=== PATIENT | female | born 1985 | race Caucasian/White ===

== ENCOUNTER 2020-05-24 10:39 | Emergency (ER) | payer OTHER, SELFPAY ==
[2020-05-24 10:58] VITALS: BP 144/77; PULSE 98; RESP 19; TEMP 36.8; O2SAT 98; BMI 25.6
--- NOTE | 2020-05-24 11:02 | HMH.EDUTC ---
[facility] [place] Disposition Clinical Impression: Viral syndrome Disposition: Home, Self-Care Condition on Discharge: Good Instructions: DI for Viral Syndrome Additional Instructions: Drink plenty of fluids. Take tylenol for pain or fever. Follow up with your regular doctor. GO TO THE ER FOR ANY WORSENING SYMPTOMS .FOLLOW THE DIRECTIONS ON THE COVID-19 HAND OUT THAT WE GAVE YOU REGARDING SELF-ISOLATION UNTIL YOU KNOW YOUR COVID-19 RESULTS Prescriptions: Ondansetron [Zofran 4mg ODT] 4 mg PO Q8HP PRN #10 tab.rapdis PRN Reason: Nausea Transmission Status: Received by [facility] Azithromycin [Z-Ricky 250mg Tab*] 250 mg PO UD DOSE PK #6 tab Transmission Status: Received by [facility] Referrals: PCP,No [Primary Care Provider] - Forms: Work/School Release Time of Disposition: 11:10 Medical Decision Making - Medical Records Medical records reviewed: No: I reviewed the patient's medical records. - Dayo Inquiry Pt receiving controlled substance: No Vital Signs: 05/24/20 10:58 05/24/20 11:15 Temperature 98.2 F 98.2 F Temperature Source Oral Pulse Rate 98 H Pulse Rate [Right Brachial] 98 H Respiratory Rate 19 19 Blood Pressure 144/77 H Blood Pressure [Right Arm] 144/77 H Blood Pressure Mean [Right Arm] 99 Blood Pressure Source [Right Arm] Automatic Cuff Blood Pressure Position [Right Arm] Sitting 02 Sat by Pulse Oximetry 98 Oxygen Delivery Method Room Air - Lab Data Lab results reviewed: Yes: I reviewed the patient's lab results. [facility] [place] HPI - General Stated complaint: fever, sore throat, naseua Time Seen by Provider: 05/24/20 11:07 Mode of Arrival: Ambulatory Source of Information: Patient Limitations: No Limitations Description of Symptoms (Recalled from Triage Doc. by RN): PATIENT C/O SORE THROAT AND BILATERAL EAR PAIN X 1 WEEK HEENT Symptoms (Recalled from RN notes): Yes Resp Symptoms (Recalled from RN notes): No Skin Symptoms (Recalled from RN notes): No MS Symptoms (Recalled from RN notes): No Functional Status (Recalled from RN notes): WNL - History of Present Illness Provider Complaint: She c/o 1 day of sore throat, sinus drainage, malaise and n/v. - Related Data Previous Rx's Medication Instructions Recorded toypofodkwcxmul-qyovrjiblssjgaa-TG 10 ml PO Q4-6H PRN #200 ml 08/15/19 2 mg-30 mg-10 mg/5 mL oral syrup Azithromycin [Z-Ricky 250mg Tab*] 250 mg PO UD DOSE PK #6 tab 05/24/20 Ondansetron [Zofran 4mg ODT] 4 mg PO Q8HP PRN #10 tab.rapdis 05/24/20 Allergies Allergy/AdvReac Type Severity Reaction Status Date / Time No Known Allergies Allergy Verified 05/24/20 11:02 - Worker's Comp Is this a Worker's Comp case?: No H History - Hepatitis A Screen Drug use history?: No High risk sexual behaviors?: No History of sexually transmitted infection?: No Currently employed?: No Childcare worker?: No Do you have indoor plumbing?: Yes Do you have electricity?: Yes Attestation statement:: This patient has been screened for Hepatitis A risk factors. I have reviewed the patient's past medical history: Yes Medical History: Denies:: Cancer, Diabetes Mellitus Type 1, Diabetes Mellitus Type 2, MRSA Amputation: No Fractures: No - Social History Smoking Status: Current every day smoker # Packs/Day (cigarettes): 1 #Yrs smoked (if former smoker): 15 Alcohol Intake: never Occupational Status: other Family Hx:: Cancer ROS Obtained: Yes All systems reviewed & no additional complaints - Constitutional Constitutional: Reports chills, Reports fever(s), Reports poor appetite, Reports malaise - Eyes Eyes: Denies eye discharge - ENT Ears, Nose, Mouth, and Throat: Reports as per HPI - Cardiovascular Cardiovascular: Denies chest pain - Respiratory Respiratory: No chest congestion, Yes cough Physical Exam - General General appearance: alert, in no apparent distress - Head Head exam: atraumatic, no
[2020-05-24 11:15] VITALS: BP 144/77; PULSE 98; RESP 19; TEMP 36.8; O2SAT 98
[2020-05-25 09:17] LABS: UTC Strep Screen (Rapid) Negative (Negative)
== END 2020-05-24 11:19 | disposition home or self-care (01) ==
PROVIDERS: Emergency Provider Nurse Practitioner Family
DX: B34.9 Viral infection, unspecified (principal); F17.210 Nicotine dependence, cigarettes, uncomplicated; Z20.828 Contact with and (suspected) exposure to other viral communicable diseases
CPT/HCPCS: 87880; 99201; U0003

== ENCOUNTER 2020-08-27 12:27 | Emergency (ER) | payer OTHER, SELFPAY ==
[2020-08-27 13:20] VITALS: BP 129/89; PULSE 86; RESP 20; TEMP 36.9; O2SAT 98; BMI 24.7
--- NOTE | 2020-08-27 13:35 | HMH.EDUTC ---
[facility] [place] Disposition Clinical Impression: Encounter for laboratory testing for COVID-19 virus, Strep throat Disposition: Home, Self-Care Condition on Discharge: Good Instructions: DI for COVID-19 (Suspected or Confirmed ), COVID-19: Testing and Tracing, Preventing the Spread of Coronavirus Discharge Instructions, DI for Strep Throat Additional Instructions: *Monitor Temp, Over the counter Motrin or Tylenol as directed/as needed Tylenol every 4 hours and Motrin every 6 hours (as long as your family doctor has told you that you can take it) for fever or pain. and straight to ER if unable to lower temp less than 101.0 after medication given *Warm salt water gargles may help to soothe the throat *Throat Lozenges *Warm fluids like tea with honey may help to soothe the throat *Sleep elevated *Humidifier/Vaporizer Your throat swab was sent for culture. Those results are typically sent to your primary care. Be sure to follow up in 2-3 days with your family doctor/primary care physician if no improvement so they can review those result and treat if necessary. If you don?t have a primary care doctor, I recommend you get one but in the mean time, you will have to return to a walk in clinic Follow up IMMEDIATELY for new or worsening symptoms or no Noticeable improvement over the next 48-72 hours. 911 for difficulty breathing or swallowing You were tested for today for COVID19 your test result should be back in the next 24-48 hours, you may call to the [facility] to see if your test results are back in the next 48 hours [phone] [facility] hours are 9am-9pm You was given a handout with instructions for Self Quarantine and Self isolation for while you wait on test results and what to do if they are positive If you are positive the Health Dept will be contacting you also Prescriptions: Amoxicillin [Amoxicillin 500mg Cap] 500 mg PO BID 10 Days #20 cap Transmission Status: Pending to [facility] Referrals: PCP,No [Primary Care Provider] - As needed Time of Disposition: 13:38 Medical Decision Making - Dayo Inquiry Pt receiving controlled substance: No Dayo was queried for this patient: No Vital Signs: 08/27/20 13:20 Temperature 98.4 F Temperature Source Oral Pulse Rate [Right Brachial] 86 Respiratory Rate 20 Blood Pressure [Right Arm] 129/89 Blood Pressure Mean [Right Arm] 102 Blood Pressure Source [Right Arm] Automatic Cuff Blood Pressure Position [Right Arm] Sitting 02 Sat by Pulse Oximetry 98 Oxygen Delivery Method Room Air - Lab Data Lab results reviewed: Yes: I reviewed the patient's lab results. Orders (Tests/Meds): ORDERS Category Date Time Status Covid-19 Nasal PCR ([facility]) Routine Lab 08/27/20 13:33 Ordered [facility] [place] HPI - General Stated complaint: Stuffy nose, headache Time Seen by Provider: 08/27/20 13:35 Mode of Arrival: Ambulatory Source of Information: Patient Limitations: No Limitations Description of Symptoms (Recalled from Triage Doc. by RN): PATIENT C/O SORE THROAT, HEADACHE, AND WEAKNESS. SON TESTED POSITIVE FOR COVID HEENT Symptoms (Recalled from RN notes): No Resp Symptoms (Recalled from RN notes): No Skin Symptoms (Recalled from RN notes): No MS Symptoms (Recalled from RN notes): No Functional Status (Recalled from RN notes): WNL - History of Present Illness Provider Complaint: Patient state that she has had sore throat, sinus pain and pressure along with headaches, feeling achy all over and fatigue State that son recently tested positive for COVID and she wanted to come in and get tested. - Related Data Previous Rx's Medication Instructions Recorded jytaouyhymwrksg-wijbpdqvmctynkg-GC 10 ml PO Q4-6H PRN #200 ml 08/15/19 2 mg-30 mg-10 mg/5 mL oral syrup Azithromycin [Z-Ricky 250mg Tab*] 250 mg PO UD DOSE PK #6 tab 05/24/20 Ondansetron [Zofran 4mg ODT] 4 mg PO Q8HP PRN #10 tab.rapdis 05/24/20 Amoxicillin [Amoxicillin 500mg 500 mg PO BID 10 Days #20 cap 08/27/20 Cap]
[2020-08-27 13:46] LABS: UTC Strep Screen (Rapid) Positive (Negative)
[2020-08-27 13:47] VITALS: BP 129/89; PULSE 86; RESP 20; TEMP 36.9; O2SAT 98
[2020-08-27 13:47] LABS: UTC Influenza A Antigen Negative (Negative); UTC Influenza B Antigen Negative (Negative)
--- NOTE | 2020-08-27 20:32 | PC.NURSE ---
PT NOTIFIED OF POSITIVE COVID RESULTS
== END 2020-08-27 13:49 | disposition home or self-care (01) ==
PROVIDERS: Emergency Provider Nurse Practitioner
DX: U07.1 COVID-19 (principal); J02.0 Streptococcal pharyngitis; F17.210 Nicotine dependence, cigarettes, uncomplicated
CPT/HCPCS: 87804; 87880; 99202; G0463; U0003

== ENCOUNTER → 2021-09-08 08:22 | Outpatient (CLI) | payer OTHER, SELFPAY | PROVIDERS: Visit Provider Nurse Practitioner | DX: U07.1 COVID-19 (principal) | CPT/HCPCS: C9803; U0003; U0005 ==

== ENCOUNTER 2022-05-02 10:12 | Emergency (ER) | payer OTHER, SELFPAY ==
[2022-05-02 10:50] LABS: Bordetella Pertussis Not Detected (NotDetected); Chlamydophila Pneumoniae, PCR Not Detected (NotDetected); Coronavirus 19, PCR Not Detected (NotDetected); Coronavirus 229E Not Detected (NotDetected); Coronavirus NL63 Not Detected (NotDetected); Coronavirus OC43 Not Detected (NotDetected); Coronovirus HKU1,PCR Not Detected (NotDetected); Human Metapneumovirus Not Detected (NotDetected); Influenza A, PCR Not Detected (NotDetected); Influenza AH1, 2009 Not Detected (NotDetected); Influenza AH1, PCR Not Detected (NotDetected); Influenza AH3,PCR Not Detected (NotDetected); Influenza B, PCR Not Detected (NotDetected); Mycoplasma Pneumoniae, PCR Not Detected (NotDetected); Parainfluenza 1, PCR Not Detected (NotDetected); Parainfluenza 2, PCR Not Detected (NotDetected); Parainfluenza 3, PCR Not Detected (NotDetected); Parainfluenza 4, PCR Not Detected (NotDetected); Respiratory Syncytial Virus Not Detected (NotDetected); Rhinovirus/Enterovirus Not Detected (NotDetected)
[2022-05-02 10:52] VITALS: BP 143/92; PULSE 102; RESP 17; TEMP 37.2; O2SAT 98; BMI 25.6
[2022-05-02 10:52] LABS: Adenovirus,PCR Not Detected (NotDetected)
--- NOTE | 2022-05-02 10:53 | EXP.UTC ---
Discharge Plan Disposition Patient Disposition: Home, Self-Care Condition: Good Prescriptions Prescriptions: New azithromycin [Zithromax] 250 mg tablet 250 mg PO UD DOSE PK Qty: 6 0RF Rx Instructions: Take two (2) tablets today, then one (1) tablet days #2 thru #5 benzonatate [benzonatate] 100 mg capsule 100 mg PO TIDP PRN (Reason: Cough) Qty: 30 0RF methylprednisolone 4 mg Tablets,Dose Pack 4 mg PO DIRECTED Qty: 21 0RF No Action knvbdbphtxrwqkv-jilizqdug-LM [Bromfed DM] 2-30-10 mg/5 mL syrup 10 ml PO Q4-6H PRN (Reason: cold symptoms) Qty: 200 0RF azithromycin 250 MG tablet 250 mg PO UD DOSE PK Qty: 6 0RF Rx Instructions: Take two (2) tablets today, then one (1) tablet days #2 thru #5 ondansetron 4 MG tablet,disintegrating 4 mg PO Q8HP PRN (Reason: Nausea) Qty: 10 0RF amoxicillin 500 MG capsule 500 mg PO BID 10 Days Qty: 20 0RF Referrals Follow up/Referrals: Ravin Eubanks MD [Primary Care Provider] - See instructions Activity Restrictions/Add. Instructions Additional Instructions/Restrictions: Drink plenty of fluids. Take tylenol for pain or fever. Return if you begin to have difficulty breathing. Follow up with your regular doctor. GO TO THE ER FOR ANY WORSENING SYMPTOMS Quarantine until you know the results of your covid-19 test. Notify your school or workplace of your results and follow their instructions regarding return to work/school. Clinical Impressions Clinical Impression: Sinusitis Instructions Patient Instructions: Sinusitis, DI for Sinusitis Discharge ED Provider[place] Fernando [place] [facility] [place] General Stated complaint: congestion, cough Time Seen by Provider: 05/02/22 10:53 History of Present Illness Provider Complaint: he states that for the past 2 days she has had sore throat, chills, body aches and low grade fever. She has been exposed to covid-19 in her house. Related Data Previous Rx's Medication Instructions Recorded ggiinedblgrqkce-ihyrtuwuabldlud-ZH 10 ml PO Q4-6H PRN cold symptoms 08/15/19 2 mg-30 mg-10 mg/5 mL oral syrup #200 mL (Bromfed DM) azithromycin 250 mg tablet 250 mg PO UD DOSE PK #6 tabs 05/24/20 ondansetron 4 mg disintegrating 4 mg PO Q8HP PRN Nausea ##10 05/24/20 tablet amoxicillin 500 mg capsule 500 mg PO BID 10 days #20 caps 08/27/20 azithromycin 250 mg tablet 250 mg PO UD DOSE PK #6 tabs 05/02/22 (Zithromax) benzonatate 100 mg capsule 100 mg PO TIDP PRN Cough #30 caps 05/02/22 methylprednisolone 4 mg tablets in 4 mg PO DIRECTED #21 tabs 05/02/22 a dose pack Allergies Allergy/AdvReac Type Severity Reaction Status Date / Time No Known Allergies Allergy Verified 05/02/22 10:57 [facility] Social History Smoking Status: Current every day smoker alcohol intake: never current occupational status: other Travel in the last 8 weeks: None ROS Obtained: Yes All systems reviewed & no additional complaints except as documented Constitutional Constitutional: Reports system reviewed and no additional complaints, except as documented, Denies chills and Denies fever(s) Eyes Eyes: Denies eye discharge ENT Ears, Nose, Mouth, and Throat: Denies dysphagia, Denies sore throat and Denies throat swelling Cardiovascular Cardiovascular: Denies chest pain and Denies dyspnea Respiratory Respiratory: Denies chest congestion, Denies cough and Denies dyspnea Gastrointestinal Gastrointestingal: Denies abdominal pain, constipation, diarrhea, dysphagia, nausea or vomiting Musculoskeletal Musculoskeletal: Denies arthralgias Integumentary/Breasts Skin/Breast: Denies rash Neurologic Neurologic: Denies paresthesias Allergic/Immunologic Allergic/Immunologic: Denies throat swelling Physical Exam General General appearance: alert and in no apparent distress Head Head exam: atraumatic, normocephalic and normal inspection Eye Eye exam: Present n
[2022-05-02 10:58] LABS: UTC Strep Screen (Rapid) Negative (Negative)
[2022-05-02 11:17] VITALS: BP 143/92; PULSE 102; RESP 17; TEMP 37.2
== END 2022-05-02 11:28 | disposition home or self-care (01) ==
PROVIDERS: Emergency Provider Nurse Practitioner Family; PCP Emergency Medicine
DX: J32.9 Chronic sinusitis, unspecified (principal)
CPT/HCPCS: 87581; 87632; 87798; 87880; 99212; C9803; G0463; U0003; U0005

== ENCOUNTER 2022-05-25 02:30 | Emergency (ER) | payer OTHER, SELFPAY ==
[2022-05-25 02:42] VITALS: BP 145/88; PULSE 134; RESP 18; TEMP 37.7; O2SAT 98; BMI 26.0
--- NOTE | 2022-05-25 02:43 | HMH.EDGENADL ---
Discharge Plan Disposition Patient Disposition: Home, Self-Care Condition: Good Prescriptions Prescriptions: No Action mgbnyaldrdjuzsn-lofzswtyy-KN [Bromfed DM] 2-30-10 mg/5 mL syrup 10 ml PO Q4-6H PRN (Reason: cold symptoms) Qty: 200 0RF azithromycin 250 MG tablet 250 mg PO UD DOSE PK Qty: 6 0RF Rx Instructions: Take two (2) tablets today, then one (1) tablet days #2 thru #5 ondansetron 4 MG tablet,disintegrating 4 mg PO Q8HP PRN (Reason: Nausea) Qty: 10 0RF amoxicillin 500 MG capsule 500 mg PO BID 10 Days Qty: 20 0RF azithromycin [Zithromax] 250 mg tablet 250 mg PO UD DOSE PK Qty: 6 0RF Rx Instructions: Take two (2) tablets today, then one (1) tablet days #2 thru #5 benzonatate [benzonatate] 100 mg capsule 100 mg PO TIDP PRN (Reason: Cough) Qty: 30 0RF methylprednisolone 4 mg Tablets,Dose Pack 4 mg PO DIRECTED Qty: 21 0RF Referrals Follow up/Referrals: Ravin Eubanks MD [Primary Care Provider] - See instructions Activity Restrictions/Add. Instructions Additional Instructions/Restrictions: Please continue to monitor your condition closely at home. Continue supportive care with Tylenol Motrin and drink plenty of fluids. If your condition worsens or does not improve in 2 to 3 days, please see your primary care physician for reassessment. You may also return to the emergency department if you have any concerns. Clinical Impressions Clinical Impression: Acute viral syndrome Instructions Patient Instructions: DI for Viral Syndrome Discharge ED Provider: Della Cerna General Adult HPI General Chief complaint: Upper Respiratory Infection Stated complaint: Fever,body aches,sore throat Time Seen by Provider: 05/25/22 02:43 Source of Information: Patient History of Present Illness HPI narrative: 36yo female without significant past medical history is presenting for chief complaint of sore throat and fever and body aches at home for 1 day. T-max at home is 100.6. Patient denies chest pain, shortness of breath, productive cough, hemoptysis, decreased appetite, abdominal pain, nausea, vomiting, changes in bowel habits, dysuria or back pain. No acute limb swelling. Onset (ago): day(s) Severity: moderate Associated symptoms: fever/chills and malaise Related Data Previous Rx's Medication Instructions Recorded lpmofpvcridtotw-unrnwiupqkuewrv-PE 10 ml PO Q4-6H PRN cold symptoms 08/15/19 2 mg-30 mg-10 mg/5 mL oral syrup #200 mL (Bromfed DM) azithromycin 250 mg tablet 250 mg PO UD DOSE PK #6 tabs 05/24/20 ondansetron 4 mg disintegrating 4 mg PO Q8HP PRN Nausea ##10 05/24/20 tablet amoxicillin 500 mg capsule 500 mg PO BID 10 days #20 caps 08/27/20 azithromycin 250 mg tablet 250 mg PO UD DOSE PK #6 tabs 05/02/22 (Zithromax) benzonatate 100 mg capsule 100 mg PO TIDP PRN Cough #30 caps 05/02/22 methylprednisolone 4 mg tablets in 4 mg PO DIRECTED #21 tabs 05/02/22 a dose pack Allergies Allergy/AdvReac Type Severity Reaction Status Date / Time No Known Allergies Allergy Verified 05/02/22 10:57 [facility] Social History Smoking Status: Current every day smoker alcohol intake: never current occupational status: other Travel in the last 8 weeks: None ROS Obtained: Yes Systems reviewed as appropriate & no additional complaints except as documented Constitutional Constitutional: Reports body ache, Reports fever(s), Denies headache(s) and Reports malaise Eyes Eyes: Denies change in vision ENT Ears, Nose, Mouth, and Throat: Denies headache(s), Denies nasal congestion, Reports odynophagia and Reports sore throat Cardiovascular Cardiovascular: Denies chest pain and Denies chest pain at rest Respiratory Respiratory: Denies shortness of breath, Denies cough, Denies non-productive cough and Denies hemoptysis Gastrointestinal Gastrointestingal: Reports odynophagia; Denies abdominal pain,
--- NOTE | 2022-05-25 02:45 | PC.NURSE ---
Dr. Wray at [facility]
[2022-05-25 03:00] VITALS: BP 113/77; PULSE 112; O2SAT 98
[2022-05-25 03:07] LABS: Basophils # 0.1 K/mm3 (0-0.2); Basophils % 0.3 % (0.1-2.0); Eosinophils # 0.1 K/mm3 (0.0-0.4); Eosinophils % 0.5 % (0.1-12.0); Hematocrit 32.7 % (37.0-47.0); Hemoglobin 10.8 g/dL (12.2-16.2); Lymphocytes # 1.2 K/mm3 (0.7-4.5); Lymphocytes % 7.6 % (10-50); Mean Corpuscular HGB Conc 33.1 g/dL (31.8-35.4); Mean Corpuscular Hemoglobin 25.7 pg (27.0-31.2); Mean Corpuscular Volume 77.4 fl (81-99); Mean Platelet Volume 7.9 fl (7.4-10.4); Monocytes # 0.7 K/mm3 (0.1-1.0); Monocytes % 4.3 % (1.7-9.3); Neutrophils # 14.2 K/mm3 (1.8-7.8); Neutrophils % 87.4 % (37.0-80.0); Platelet Count 330 K/mm3 (142-424); Red Blood Count 4.23 M/mm3 (4.20-5.40); White Blood Count 16.2 K/mm3 (4.8-10.8)
[2022-05-25 03:14] LABS: Anion Gap 16.8 mEq/L (5-15); Blood Urea Nitrogen 11 mg/dl (7-17); Calcium 8.7 mg/dl (8.4-10.2); Carbon Dioxide 20 mmol/L (22.0-30.0); Chloride 102 mmol/L (98-107); Creatinine Clearance Estimated 118 mL/min (50-200); Estimated Glomerular Filt Rate 95 ml/min (>60); GFR (African American) 115 ML/MIN (>60); Glucose 120 mg/dl (74-100); Potassium 3.8 mmoL/L (3.5-5.1); Sodium 135 mmol/L (136-145)
[2022-05-25 03:16] LABS: Strep Scrn Group A (Rapid) Negative (Negative)
[2022-05-25 03:17] LABS: MANUAL DIFFERENTIAL MANUAL DIFFERENTIAL (MANUAL DIFF)
--- NOTE | 2022-05-25 03:22 | ECG_ITS ---
APPROVED REPORT Exam: Resting ECG HR:116 bpm ECG Measurements Heart Rate 116 AXES NC 149 P 62 QRSd 84 QRS 85 QT 342 T 35 QTc 411 Conclusion SINUS TACHYCARDIA WITH OCCASIONAL VENTRICULAR PREMATURE COMPLEXES NONSPECIFIC T-WAVE ABNORMALITY ABNORMAL RHYTHM ECG UNCONFIRMED REPORT Electronically signed by : Kel Canada MD 05/26/2022 17:41:17
[2022-05-25 03:55] LABS: Coronavirus 19, PCR Not Detected (NotDetected); Influenza A, PCR Not Detected (NotDetected); Influenza B, PCR Not Detected (NotDetected)
[2022-05-25 04:00] VITALS: BP 114/67; PULSE 106; O2SAT 97
[2022-05-25 04:00] LABS: Eosinophils % 1 % (0-3); Lymphocytes % 9 % (10-50); Neutrophils % 90 % (42-76); Platelet Estimate Normal; Stomatocytes 1+; Total Cells Counted 100
--- NOTE | 2022-05-25 04:30 | PC.NURSE ---
Pt/Family updated on POC and expected wait times. Pt agreeable. No other needs or complaints voiced.
--- NOTE | 2022-05-25 04:32 | PC.NURSE ---
notified all results are back
[2022-05-25 05:17] VITALS: BP 115/67; PULSE 105; RESP 16; TEMP 36.6; O2SAT 98
== END 2022-05-25 05:19 | disposition home or self-care (01) ==
PROVIDERS: Emergency Provider Emergency Medicine; PCP Emergency Medicine
DX: B34.9 Viral infection, unspecified (principal); R50.9 Fever, unspecified; J02.9 Acute pharyngitis, unspecified; R52 Pain, unspecified; Z79.899 Other long term (current) drug therapy
CPT/HCPCS: 80048; 85007; 85025; 87430; 93005; 96365; 96375; 99284; C9803; U0003; U0005

== ENCOUNTER 2022-06-02 00:55 | Observation (INO) | payer OTHER, SELFPAY ==
[2022-06-02] VITALS (22 sets, daily range): BP systolic 94–139; BP diastolic 52–89; PULSE 61–122; RESP 16–18; TEMP 36.2–37.3; O2SAT 73–100; BMI 25.7
--- NOTE | 2022-06-02 01:07 | PC.NURSE ---
PT ARRIVED TO FLOOR VIA WHEELCHAIR @ 0103
--- NOTE | 2022-06-02 01:32 | EXP.HP ---
History of Present Illness *Admission Date: 06/02/22 *Reason for visit:: Acute appendicitis *History of present illness: With no significant past medical history presents as a transfer from [facility] for further evaluation of acute appendicitis. She reports being at a sporting event tonight and started having sudden onset sharp severe right lower quadrant pain with associated nausea and vomiting. She does endorse mild chills recently but also complains of upper respiratory symptoms as well. COVID is negative. At the outside hospital she was noted to have acute appendicitis on CT. White blood cell count of 16. CT of the outside hospital also mentions endometrial wall thickening, follow-up with ultrasound to evaluate for questionable endometrial mass. She denies any ongoing severe abdominal pain prior to tonight but does endorse moderately heavy periods. General surgery was consulted prior to transfer here and will see patient in a.m. for surgical consult. She is currently stable, and in no distress. She is admitted to hospital service for further evaluation and management.. [facility] Social History Smoking Status: Current every day smoker alcohol intake: never current occupational status: other Travel in the last 8 weeks: None Review of Systems Constitutional Constitutional: Reports as per HPI Eyes Eyes: Reports system reviewed and no additional complaints, except as documented ENT Ears, Nose, Mouth, and Throat: Reports system reviewed and no additional complaints, except as documented *Cardiovascular Cardiovascular: Reports system reviewed and no additional complaints, except as documented *Respiratory Respiratory: Reports system reviewed and no additional complaints, except as documented *Gastrointestinal Gastrointestinal: Reports as per HPI, Reports abdominal pain, Reports bloating and Reports vomiting *Genitourinary Genitourinary: Reports system reviewed and no additional complaints, except as documented *Musculoskeletal Musculoskeletal: Reports system reviewed and no additional complaints, except as documented Integumentary/Breasts Skin/Breast: Reports system reviewed and no additional complaints, except as documented *Neurologic Neurologic: Reports system reviewed and no additional complaints, except as documented Psychiatric Psychiatric: Reports system reviewed and no additional complaints, except as documented Endocrine Endocrine: Reports system reviewed and no additional complaints, except as documented Meds Home Medications and Allergies Home Medications Medication Instructions Recorded Confirmed Type zdblzvsmmaqovso-ziozjeotiqbyafl-ZD 10 ml PO Q4-6H PRN cold symptoms 08/15/19 08/15/19 Rx 2 mg-30 mg-10 mg/5 mL oral syrup #200 mL (Bromfed DM) azithromycin 250 mg tablet 250 mg PO UD DOSE PK #6 tabs 05/24/20 Rx ondansetron 4 mg disintegrating 4 mg PO Q8HP PRN Nausea ##10 05/24/20 Rx tablet amoxicillin 500 mg capsule 500 mg PO BID 10 days #20 caps 08/27/20 Rx azithromycin 250 mg tablet 250 mg PO UD DOSE PK #6 tabs 05/02/22 Rx (Zithromax) benzonatate 100 mg capsule 100 mg PO TIDP PRN Cough #30 caps 05/02/22 Rx methylprednisolone 4 mg tablets in 4 mg PO DIRECTED #21 tabs 05/02/22 Rx a dose pack New Prescriptions to Start Prescriptions: Allergies Allergy/AdvReac Type Severity Reaction Status Date / Time No Known Allergies Allergy Verified 05/02/22 10:57 Exam Constitutional Constitutional: no acute distress *Routine HEENT Exam Head: Present normocephalic and atraumatic Eye: Present EOMI ENT: Present mucous membranes moist *Routine Neck Exam Neck: Present supple and full ROM *Routine Respiratory Exam Respiratory: Present normal respiratory effort and able to speak in complete sentences *Routine Cardiovascular Exam Cardiovascular: Present RRR, Normal S1 and Normal S2 *Routine Abdominal Exam Abdominal: Present so
--- NOTE | 2022-06-02 02:07 | PC.NURSE ---
PT ARRIVED TO UNIT AT 0106, PT COMPAINTS OF RLQ 8/10 ON PAIN SCALE, PT GUARDING ABDOMEN AND ROCKING IN BED, PT STATES SITTING UP IS MORE COMFORTABLE THAN LAYING DOWN, PT DENIES NAUSEA AT THIS TIME, STATES SHE DID VOMIT MULTIPLE TIMES WHEN PAIN INITIALLY STARTED BUT SINCE THE NAUSEA HAS RESOLVED, PT DENIES ANY PAST MEDICAL HISTORY, DENIES TAKING ANY HOME MEDICATION, LUNGS CLEAR TO AUSCULTATE, HEART RATE REGULAR, BS X 4 QUADS AND NORMOACTIVE, IV STARTED AND PT MEDICATED FOR PAIN, PT UNDERSTANDS REMAINING NPO FOR SURGERY, CALL LIGHT WITHIN REACH, NO OTHER NEEDS VOICED AT THIS TIME
--- NOTE | 2022-06-02 05:11 | PC.NURSE ---
PT HAS RESTED OFF AND ON SINCE ARRIVAL TO UNIT, CONTINUES TO HAVE RLQ PAIN WITH NONPRODUCTIVE COUGH, PAIN HAS BEEN MANAGED WITH PRN PAIN MEDICATION, ONE TIME DOES OF ROBITUSSIN GIVEN FOR COUGH AND NOTED TO BE EFFECTIVE AT THIS TIME, BOWEL SOUNDS REMAIN ACTIVE, INTERMITTENT NAUSEA CONTINUES WHICH WAS TREATED WITH PRN ZOFRAN, PT HAS REMAINED NPO STATUS IN PREPARATION FOR SURGERY TODAY, AT BEDSIDE, CELSO
[2022-06-02 06:59] LABS: Basophils # 0.1 K/mm3 (0-0.2); Basophils % 0.4 % (0.1-2.0); Eosinophils # 0.1 K/mm3 (0.0-0.4); Hemoglobin 9.4 g/dL (12.2-16.2); Lymphocytes # 2.2 K/mm3 (0.7-4.5); Mean Corpuscular HGB Conc 32.1 g/dL (31.8-35.4); Mean Corpuscular Hemoglobin 25.1 pg (27.0-31.2); Mean Platelet Volume 7.9 fl (7.4-10.4); Monocytes # 0.5 K/mm3 (0.1-1.0); Monocytes % 4.1 % (1.7-9.3); Neutrophils # 9.8 K/mm3 (1.8-7.8); Neutrophils % 77.5 % (37.0-80.0); Platelet Count 401 K/mm3 (142-424); Red Blood Count 3.74 M/mm3 (4.20-5.40); Red Cell Distribution Width 16.5 % (11.5-17.5); White Blood Count 12.7 K/mm3 (4.8-10.8)
[2022-06-02 07:00] LABS: Hematocrit 29.2 % (37.0-47.0)
[2022-06-02 07:03] LABS: Chloride 103 mmol/L (98-107); Potassium 3.7 mmoL/L (3.5-5.1); Sodium 138 mmol/L (136-145)
--- NOTE | 2022-06-02 07:04 | PC.NURSE ---
SPOKE WITH DR. REINA, REQUESTED SURGERY TEAM TO BE CALLED IN. SURGERY TEAM PAGED.
--- NOTE | 2022-06-02 07:05 | PC.NURSE ---
SPOKE WITH FELIPE REID AND CASEY.
[2022-06-02 07:06] LABS: Anion Gap 13.7 mEq/L (5-15); Blood Urea Nitrogen 6 mg/dl (7-17); Calcium 7.9 mg/dl (8.4-10.2); Carbon Dioxide 25 mmol/L (22.0-30.0); Creatinine Clearance Estimated 136 mL/min (50-200); Estimated Glomerular Filt Rate 114 ml/min (>60); GFR (African American) 138 ML/MIN (>60); Glucose 96 mg/dl (74-100); Magnesium 1.8 mg/dl (1.6-2.3)
[2022-06-02 07:28] LABS: HCG Qualitative, Serum Negative (Negative)
[2022-06-02 07:42] LABS: Alanine Aminotransferase 19 U/L (12-78); Albumin Level 3.8 g/dl (3.5-5.0); Alkaline Phosphatase 68 U/L (38-126); Aspartate Amino Transferase 25 U/L (14-36); Bilirubin,Direct 0.2 mg/dl (0.0-0.4); Bilirubin,Indirect 0.4 mg/dL (0.0-0.9); Bilirubin,Total 0.6 mg/dl (0.2-1.3); Bilirubin,Unconjugated 0.4 mg/dL (0.0-1.1); Total Protein,Serum 6.7 g/dl (6.3-8.2)
--- NOTE | 2022-06-02 07:58 | PC.NURSE ---
surgery on floor to get patient. preop consent and checklist complete. all jewelry removed. negative preg. @ bedside
--- NOTE | 2022-06-02 08:08 | EXP.SURG.CON ---
History of Present Illness *Admission Date: 06/02/22 *Reason for visit:: Appendicitis *History of present illness: This is a 36-year-old female seen in consultation for hospital service for evaluation management of appendicitis. Please see HPI forwarded from admission H&P below. Forwarded from admission H&P: With no significant past medical history presents as a transfer from [facility] for further evaluation of acute appendicitis. She reports being at a [facility] and started having sudden onset sharp severe right lower quadrant pain with associated nausea and vomiting. She does endorse mild chills recently but also complains of upper respiratory symptoms as well. COVID is negative. At the outside hospital she was noted to have acute appendicitis on CT. White blood cell count of 16. CT of the outside hospital also mentions endometrial wall thickening, follow-up with ultrasound to evaluate for questionable endometrial mass. She denies any ongoing severe abdominal pain prior to tonight but does endorse moderately heavy periods. General surgery was consulted prior to transfer here and will see patient in a.m. for surgical consult. She is currently stable, and in no distress. She is admitted to hospital service for further evaluation and management. PFSH PFS Surgical History History of tubal ligation Previous section Social History (Updated 06/02/22 @ 02:03 by Nurys Larios RN) Smoking Status: Current every day smoker alcohol intake: never current occupational status: unemployed and other Travel in the last 8 weeks: None Review of Systems *Neurologic Neurologic: Reports system reviewed and no additional complaints, except as documented Meds Home Medications and Allergies Home Medications Medication Instructions Recorded Confirmed Type No Known Home Medications 06/02/22 06/02/22 History New Prescriptions to Start Prescriptions: Allergies Allergy/AdvReac Type Severity Reaction Status Date / Time No Known Allergies Allergy Verified 05/02/22 10:57 Exam (Inpt) Vital signs and Labs for Last 24 Hours: Temp Pulse Resp BP Pulse Ox 98.9 F 64 16 136/68 96 06/02/22 04:00 06/02/22 04:00 06/02/22 04:00 06/02/22 04:00 06/02/22 04:00 Laboratory Results - last 24 hr 06/02/22 06:30: WBC 12.7 H, RBC 3.74 L, Hgb 9.4 L, Hct 29.2 L, MCV 78.0 L, MCH 25.1 L, MCHC 32.1, RDW 16.5, Plt Count 401, MPV 7.9, Neut % (Auto) 77.5, Lymph % (Auto) 17.0, Calloway % (Auto) 4.1, Eos % (Auto) 1.0, Baso % (Auto) 0.4, Neut # (Auto) 9.8 H, Lymph # (Auto) 2.2, Calloway # (Auto) 0.5, Eos # (Auto) 0.1, Baso # (Auto) 0.1 06/02/22 06:30: Sodium 138, Potassium 3.7, Chloride 103, Carbon Dioxide 25, Anion Gap 13.7, BUN 6 L, Creatinine 0.60, Estimated Creat Clear 136, Estimated GFR 114, Est GFR ( Amer) 138, Glucose 96, Calcium 7.9 L, Magnesium 1.8 06/02/22 06:30: Blood Type O Positive, Antibody Screen Negative 06/02/22 06:30: Serum HCG, Qual Negative 06/02/22 06:30: Total Bilirubin 0.6, Direct Bilirubin 0.2, Conjugated Bilirubin 0.0, Indirect Bilirubin 0.4, Unconjugated Bilirubin 0.4, AST 25, ALT 19, Alkaline Phosphatase 68, Total Protein 6.7, Albumin 3.8 I & O for Labs for Last 24 Hours: Intake & Output 05/30/22 05/31/22 06/01/22 06/02/22 11:59 11:59 11:59 11:59 Output Total 0 / 0 Balance 0 / 0 Weight 145 lb Constitutional: no acute distress Respiratory: Absent respiratory distress Cardiac: Present Reg Rate and Rhythm GI: Present soft and tenderness Extremities: Present full ROM Skin: Present intact Neuro: Present alert, awake and moves all extremities Results Labs Result diagrams: 06/02/22 06:30 06/02/22 06:30 Labs: Laboratory Results - last 24 hr 06/02/22 06:30: WBC 12.7 H, RBC 3.74 L,
--- NOTE | 2022-06-02 08:57 | HMH.PHAINT1 ---
Pharmacy Intervention Comments: MEDICATION RECONCILIATION COMPLETE USING EXTERNAL PHARMACY FILL HISTORY AND RECENT ER VISIT LIST.
--- NOTE | 2022-06-02 09:32 | P.OP_ITS ---
Date of procedure: 06/02/22 Pre-op Diagnosis:: Appendicitis Post-op Diagnosis:: Same Procedure performed:: Laparoscopic appendectomy Surgeon:: Luis Sheehan MD Anesthesia: GETA Estimated blood loss (mL): 15 Operative findings:: Inflamed appendix Apparent enlargement of uterus consistent with outside facility CT scan (patient aware of findings and plans [facility] follow-up) Operative note:: After informed consent was obtained the patient was taken to the operating room and placed in the supine position. General anesthesia was induced and her abdomen was prepped and draped in a sterile fashion. After infiltration local anesthetic a supraumbilical incision was made. A Veress needle was placed in position. The abdomen was insufflated. A 12 mm optical trocar was placed in position. Under direct visualization a 5 mm trocar was placed in the suprapubic position and an additional 5 mm trocar was placed in the left lower quadrant. As the appendix was carefully elevated, inflammation was confirmed. No sign of perforation was seen. The mesoappendix was taken with harmonic shonna as the base of the appendix was approached. A small window was bluntly made in the mesoappendix at the appendiceal base. An Endopath 45 stapling device was then used to take the appendix at its base. The appendix was placed in a retrieval bag and removed through the supraumbilical trocar site. The right lower quadrant was thoroughly irrigated. No active bleeding or sign of injury noted. No pockets of purulence were seen. Evaluation of the pelvis did reveal an apparent enlarged uterus. Pneumoperitoneum was released as the trocars were rem cristina. All wounds were irrigated. Fascia at the supraumbilical trocar site was reapproximated with 0 Ethibond. Skin was then closed with interrupted 4-0 Monocryl in an interrupted mattress fashion to facilitate hemostasis. Dressings were applied and the patient was transferred to recovery in stable condition. Condition: stable Disposition: PACU Specimens:: Appendix Complications:: No immediate
--- NOTE | 2022-06-02 09:40 | EXP.ANES.CKL ---
[facility] Surgical History History of tubal ligation Previous section Social History (Updated 06/02/22 @ 02:03 by Nurys Larios RN) Smoking Status: Current every day smoker alcohol intake: never substance use type: denies use current occupational status: unemployed and other Travel in the last 8 weeks: None [facility] Anesthesia Checklist Patient Identification Patient Identification: Arm Band and Verbal (Name & ) Structural Data Admitted From: Emergency Dept Planned Operative Procedure/s: Lap Appy Consent for Planned Operative Procedure(s) Verified: Yes Verified Documents: Surgical Consent NPO Status Verified Time NPO: 00:00 Additional verifications Patient : No Airway Assessment C-Spine Mobility Assessed: Yes TMJ Mobility Assessed: Yes Dentition: Good Dentition Neurological Assessment Level of Consciousness: Awake, Alert and Appropriate Anesthesia Plan Anesthesia Risk discussed: Yes ASA Class: II Anesthesia Type: General
--- NOTE | 2022-06-02 09:41 | EXP.ANES.I ---
[facility] Anesthesia Record Part I Anesthesia Record I Intake, IV Amount: 600 Estimated blood loss (mL): 10 Urine output (mL): 0 Blood Pressure: 105/66 SaO2: 96 Pulse Rate: 61 Respiratory Rate: 16 Temperature: 97.2 F Patient is:: Drowsy Stable to PACU at:: 09:38
--- NOTE | 2022-06-02 10:45 | PC.NURSE ---
pt back on the floor from PACU. she is alert and oriented. has three incisions to abd all of which are c/d/i. she denies any pain @ this time. bs are good. lungs are cta. is @ bedside. no c/o nausea at this time. vs stable. Will continue to monitor
--- NOTE | 2022-06-02 10:47 | SUR.PHASEI ---
[id number] called and gave detailed report to Juan De Oliveira RN [id number] transported via bed to med/surg room. vital signs stable. rates pain at a level 3. left in stable condition with Juan De Oliveira RN at bedside.
[2022-06-02 10:53] LABS: Microscopic,Cath URINE MICROSCOPIC (MICROSCOPIC)
[2022-06-02 11:04] LABS: Appearance,Urine/Cath CLOUDY (Clear); Bilirubin,Cath Negative (Negative); Blood, Urine/Cath Negative (Negative); Color,Urine/Cath YELLOW (Yellow); Glucose,Urine/Cath (UA) Negative (Negative); Ketones,Urine/Cath Negative (Negative); Leukocyte Esterase,Cath Negative (Negative); Nitrate,Cath Negative (Negative); Protein,Urine/Cath 1+ (Negative); Specific Gravity, Urine/Cath >= 1.030 (1.005-1.030); Urobilinogen,Cath 0.2 EU/dl (0.2)
[2022-06-02 11:22] LABS: Bacteria,Urine/Cath TRACE /lpf; Mucus,Urine/Cath Trace /lpf; RBC,Urine/Cath Occasional # /hpf (0-3); WBC,Urine/Cath Occasional #/hpf (0-3)
--- NOTE | 2022-06-02 12:39 | EXP.DC.SUM ---
General Admission date:: 06/02/22 Discharge date: 06/02/22 HPI HPI HPI: Pt is a 36 y/o woman with no significant past medical history who is admitted as a transfer from [facility] for further evaluation of acute appendicitis. She reports being at a sporting event tonight and started having sudden onset sharp severe right lower quadrant pain with associated nausea and vomiting. She does endorse mild chills recently but also complains of upper respiratory symptoms as well. COVID is negative. At the outside hospital she was noted to have acute appendicitis on CT. White blood cell count of 16. CT of the outside hospital also mentions endometrial wall thickening, follow-up with ultrasound to evaluate for questionable endometrial mass. She denies any ongoing [facility] but does endorse moderately heavy periods. General surgery was consulted prior to transfer here and will see patient in a.m. for surgical consult. She is currently stable, and in no distress. She is admitted to hospital service for further evaluation and management. Hospital Course Hospital Course Hospital Course: Patient admitted overnight for acute appendicitis. Patient had an uncomplicated laparoscopic appendectomy this morning. She is tolerating food and drink by mouth and walking without difficulty. Patient is therefore stable and ready for discharge. Dr. Srivastava has prescribed her Augmentin and Elora. Hemoglobin is somewhat low at 9.4. Hemoglobin was 10.8 a week ago when she was in the ER for a sore throat so this is not a precipitous drop. MCV is also low at 78 and patient reports history of heavy periods and a propensity for eating ice. Patient will follow-up with her PCP, however I will prescribe her iron supplements for presumed iron deficiency anemia. Additionally, patient will follow-up with [facility] as uterus is noted to be enlarged and there may be endometrial thickening versus uterine mass on CT at [facility] ER. Exam Data for Last 24 hours Vital signs and Labs for Last 24 Hours: Temp Pulse Resp BP Pulse Ox 98.4 F 72 16 108/69 L 98 06/02/22 10:38 06/02/22 10:38 06/02/22 10:38 06/02/22 10:38 06/02/22 10:38 Laboratory Results - last 24 hr 06/02/22 06:30: WBC 12.7 H, RBC 3.74 L, Hgb 9.4 L, Hct 29.2 L, MCV 78.0 L, MCH 25.1 L, MCHC 32.1, RDW 16.5, Plt Count 401, MPV 7.9, Neut % (Auto) 77.5, Lymph % (Auto) 17.0, Terrell % (Auto) 4.1, Eos % (Auto) 1.0, Baso % (Auto) 0.4, Neut # (Auto) 9.8 H, Lymph # (Auto) 2.2, Terrell # (Auto) 0.5, Eos # (Auto) 0.1, Baso # (Auto) 0.1 06/02/22 06:30: Sodium 138, Potassium 3.7, Chloride 103, Carbon Dioxide 25, Anion Gap 13.7, BUN 6 L, Creatinine 0.60, Estimated Creat Clear 136, Estimated GFR 114, Est GFR ( Amer) 138, Glucose 96, Calcium 7.9 L, Magnesium 1.8 06/02/22 06:30: Blood Type O Positive, Antibody Screen Negative 06/02/22 06:30: Serum HCG, Qual Negative 06/02/22 06:30: Total Bilirubin 0.6, Direct Bilirubin 0.2, Conjugated Bilirubin 0.0, Indirect Bilirubin 0.4, Unconjugated Bilirubin 0.4, AST 25, ALT 19, Alkaline Phosphatase 68, Total Protein 6.7, Albumin 3.8 06/02/22 08:25: Urine Color Yellow, Urine Appearance Cloudy, Urine pH 6.0, Ur Specific Paris >= 1.030, Urine Protein 1+, Urine Glucose (UA) Negative, Urine Ketones Negative, Urine Blood Negative, Urine Nitrate Negative, Urine Bilirubin Negative, Urine Urobilinogen 0.2, Ur Leukocyte Esterase Negative, Urine RBC Occasional, Urine WBC Occasional, Ur Squamous Epith Cells 3-5, Urine Bacteria Trace I & O for Last 24 hours: Intake & Output 05/30/22 05/31/22 06/01/22 06/02/22 23:59 23:59 23:59 23:59 Intake Total 600 / 600 Output Total 0 / 0 Balance 600 / 600 Weight 65.771 kg Constitutional Constitutional: no acute distress and cooperative *Routine HEENT Exam Head: Present normocephalic and atraumatic Eye: Present EOMI and PERRL ENT: Present mucous membranes moist and oropharynx clear *Routine Neck Exam Neck
--- NOTE | 2022-06-02 13:37 | PC.NURSE ---
spoke with Surgeon regarding prescriptions. will send to clinic
--- NOTE | 2022-06-02 13:44 | HMH.PHAINT1 ---
Pharmacy Intervention Comments: DISCHARGE MEDICATION COUNSELING PROVIDED. DISCUSSED THE FOLLOWING NEW PRESCRIPTIONS: 1) AUGMENTIN (THREE TIMES DAILY, FOR INFECTION, TAKE WITH FOOD, MAY CAUSE GI UPSET/NAUSEA/DIARRHEA) 2) FERROUS SULFATE (TWICE DAILY, SUPPLEMENTATION, TAKE ON EMPTY STOMACH, GI UPSET POSSIBLE 3) HYDROCODONE/APAP (EVERY 6 HOURS NEEDED FOR PAIN, IF NOT IN PAIN DO NOT TAKE, MAY CAUSE DIZZINESS, LIGHTHEADEDNESS, SEDATION, HEADACHE, DECREASED RESPIRATIONS, DO NOT DRIVE UNTIL YOU KNOW HOW THIS WILL AFFECT YOU, MAY WANT TO START AT NIGHT). PATIENT VERBALIZED NO QUESTIONS AT THIS TIME.
--- NOTE | 2022-06-02 13:59 | PC.NURSE ---
pt has been discharged from the unit. took all belongings with her and voiced understaning of all discahrge education and follow up appts. as well as surgical site infection. IV discontinued. dressings are c/d/i. denies any pain or nausea
--- NOTE | 2022-06-04 07:59 | EXP.ANES.II ---
[facility] Anesthesia Record Part II Anesthesia Record Part II Discharge Time: 10:38 Destination: Surgical Day Care (OP Surgery) PACU nurse assessment reviewed?: Yes Patient Condition:: Good Anesthesia Complications:: None Swallowing reflex intact?: Yes Cyanosis?: No Blood Pressure: 108/69 Pulse Rate: 72 Temperature: 98.4 F Mental Status: Alert & Oriented Pain level:: 3 Nausea and/or vomitting:: None Intake, IV Amount: 0
[2022-06-04 08:01] VITALS: BP 108/69; PULSE 72; TEMP 36.9
--- NOTE | 2022-06-04 14:24 | CARE MANAGER ---
Attempted post-discharge phone interview, no answer.
== END 2022-06-02 14:02 | disposition home or self-care (01) ==
PROVIDERS: Nurse Practitioner Acute Care; Surgery; Admitting Provider Emergency Medicine; PCP Emergency Medicine; Visit Provider Emergency Medicine
PROC: 0DTJ4ZZ Resection of Appendix, Percutaneous Endoscopic Approach (ICD-10-PCS; CPT 44970; principal; 2022-06-02 08:30)
DX: K35.80 Unspecified acute appendicitis (principal); D50.9 Iron deficiency anemia, unspecified; N85.2 Hypertrophy of uterus
CPT/HCPCS: 44970; 36415; 80048; 80076; 81001; 83735; 84703; 85025; 86850; 88304; G0378; J0696; J2405; J2710

== ENCOUNTER → 2022-06-13 11:15 | Outpatient (CLI) | payer OTHER, SELFPAY ==
--- NOTE | 2022-06-13 11:15 | US_ITS ---
FINAL REPORT CLINICAL HISTORY: enlarged uterus, heavy bleeding FINDINGS: Transvaginal sonographic images of the pelvis were obtained. The uterus measures 11.0 x 6.7 x 6.0 cm. A uterine fibroid is seen measuring 3.9 cm. The endometrium measures 11 mm. The right ovary measures 2.5 x 2.1 x 2.2 cm. The left ovary measures 3.0 x 1.8 x 2.6 cm. There are small follicles/cysts in both ovaries. IMPRESSION: Uterine fibroid. Bilateral ovarian follicles/cysts. Reviewed, Interpreted and Dictated by Saran Ray III, MD Transcribed by Norma Dorantes Authenticated and . [facility]
== END ==
PROVIDERS: PCP Obstetrics & Gynecology; Visit Provider Obstetrics & Gynecology
DX: N85.2 Hypertrophy of uterus (principal); Z87.42 Personal history of other diseases of the female genital tract
CPT/HCPCS: 76830

== ENCOUNTER → 2022-07-31 10:29 | Outpatient (CLI) | payer OTHER, SELFPAY ==
[2022-07-31 11:02] LABS: Basophils # 0.1 K/mm3 (0-0.2); Basophils % 0.7 % (0.1-2.0); Eosinophils # 0.5 K/mm3 (0.0-0.4); Eosinophils % 7.4 % (0.1-12.0); Hematocrit 38.8 % (37.0-47.0); Hemoglobin 12.4 g/dL (12.2-16.2); Lymphocytes # 1.5 K/mm3 (0.7-4.5); Lymphocytes % 20.5 % (10-50); Mean Corpuscular Hemoglobin 28.3 pg (27.0-31.2); Mean Corpuscular Volume 88.5 fl (81-99); Mean Platelet Volume 7.8 fl (7.4-10.4); Monocytes # 0.4 K/mm3 (0.1-1.0); Monocytes % 4.9 % (1.7-9.3); Neutrophils # 4.8 K/mm3 (1.8-7.8); Neutrophils % 66.6 % (37.0-80.0); Platelet Count 294 K/mm3 (142-424); Red Blood Count 4.39 M/mm3 (4.20-5.40); White Blood Count 7.2 K/mm3 (4.8-10.8)
[2022-07-31 11:53] LABS: Chloride 105 mmol/L (98-107); Sodium 141 mmol/L (136-145)
[2022-07-31 11:55] LABS: Alanine Aminotransferase 19 U/L (12-78); Aspartate Amino Transferase 22 U/L (14-36); Blood Urea Nitrogen 5 mg/dl (7-17); Estimated Glomerular Filt Rate 114 ml/min (>60); GFR (African American) 138 ML/MIN (>60)
[2022-07-31 11:56] LABS: Albumin Level 4.4 g/dl (3.5-5.0); Albumin/Globulin Ratio 1.6 (1.1-1.8); Alkaline Phosphatase 67 U/L (38-126); Bilirubin,Total 0.3 mg/dl (0.2-1.3); Calcium 9.3 mg/dl (8.4-10.2); Carbon Dioxide 26 mmol/L (22.0-30.0); Globulin 2.7 g/dL (1.3-3.2); Glucose 83 mg/dl (74-100); Total Protein,Serum 7.1 g/dl (6.3-8.2)
[2022-07-31 12:14] LABS: HCG,Quantitative < 2 mIU/ml (0-5.42)
== END ==
PROVIDERS: Visit Provider Obstetrics & Gynecology
DX: R93.89 Abnormal findings on diagnostic imaging of other specified body structures (principal); Z01.812 Encounter for preprocedural laboratory examination
CPT/HCPCS: 36415; 80053; 84702; 85025

== ENCOUNTER 2022-08-06 12:15 | Inpatient (IN) | payer OTHER, SELFPAY ==
[2022-08-03 10:34] VITALS: BMI 26.0
[2022-08-06] VITALS (22 sets, daily range): BP systolic 103–136; BP diastolic 54–93; PULSE 75–98; RESP 10–20; TEMP 36.8–43; O2SAT 95–100
[2022-08-06 06:39] LABS: Coronavirus 19, PCR Not Detected (NotDetected); Influenza A, PCR Not Detected (NotDetected); Influenza B, PCR Not Detected (NotDetected)
--- NOTE | 2022-08-06 07:24 | EXP.ANES.CKL ---
[facility] Disclaimer: The information contained in this section may have been updated after the patient was seen, as this information can be updated by other users. Medical History Menorrhagia with regular cycle Uterine leiomyoma Surgical History History of appendectomy History of tubal ligation Previous section Family History Family/Other Thyroid cancer Cancer Father Thyroid cancer Other Ovarian cancer Social History Smoking Status: Current every day smoker tobacco type: e-cigarettes alcohol intake: never substance use type: denies use current occupational status: unemployed Travel in the last 8 weeks: None caffeine: No [facility] Anesthesia Checklist Patient Identification Patient Identification: Arm Band and Verbal (Name & ) Structural Data Admitted From: Home Planned Operative Procedure/s: [facility] Consent for Planned Operative Procedure(s) Verified: Yes NPO Status Verified Time NPO: 00:00 Chart Verification Results Verified: CBC, BMP and HCG Additional verifications Patient : No Anesthesia Reactions: No Hx Blood Transfusions: Yes Blood Transfusion Reaction: No Airway Assessment C-Spine Mobility Assessed: Yes TMJ Mobility Assessed: Yes Dentition: Good Dentition Neurological Assessment Level of Consciousness: Awake Hx Seizures: No Numbness or tingling in extremities: No Anesthesia Plan Anesthesia Risk discussed: Yes Anesthesia Plan: Verified ASA Class: I Anesthesia Type: General
--- NOTE | 2022-08-06 07:28 | EXP.HP ---
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 Hx significant for 2 previous CS and BTL done at time of last CS FH significant for uterine cancer in paternal aunt She was evaluated at [facility] 1 week ago with acute onset abd pain with nausea Diagnosed with appendicitis and transferred to [facility], where she had uncomplicated laparoscopic appendectomy Preop CT had reported possible mass in SONIA and endometrial thickening in uterine fundus No specific measurement given regarding thickened endometrium, however menstrual period started [address] Intra-operative evaluation of pelvis showed enlarged uterus with small pedunculated fibroid She reported heavy menstrual periods that are regular q 28-30 days Bleeding lasts 5-9 days and is heavy, with double protection required Dysmenorrhea is severe and occasional dyspareunia Hgb at [facility] 9.4 and she was started on ferrous sulfate at discharge Pap smear was performed at initial consultation and result was negative Pelvic ultrasound was ordered after office visit and performed on 06/13/22: Uterus 11.0x6.7x6.0 ? 3.9cm uterine fibroid ? ES 11mm R ovary 2.5x2.1x2.2cm L ovary 3.0x1.8x2.6cm She desires definitive surgical management with hysterectomy She has been advised that attempt at laparoscopic hysterectomy is reasonable, but that location and/or size of fibroids may necessitate conversion to MINESH She has been counseled about the increased risk for bladder injury with history of 2 previous CS, as well as general risks of surgery including bleeding, infection, damage to other organs and possible need for additional surgeries She has been counseled for ovarian preservation and is in agreement with this Surgical plan will be to place a uterine manipulator and then proceed with diagnostic laproscopy If there is a high concern for inability to successfully remove the uterus via laparoscopic approach upon initial evaluation, the umbilical site will be closed and will proceed with MINESH She is also aware that if TLH is begun, complications may arise that necessitate conversion to MINESH mid-procedure Preop labs were obtained in advance in order to assess any need for IV iron or red cell transfusion prior to surgery date Hgb had risen to 12.4 from 9.4 with oral iron PFSH PFSH Disclaimer: The information contained in this section may have been updated after the patient was seen, as this information can be updated by other users. Medical History Menorrhagia with regular cycle Uterine leiomyoma Surgical History (Updated 08/06/22 @ 07:37 by Shilpa Dukes MD) History of appendectomy History of tubal ligation Previous section Family History Family/Other Thyroid cancer Cancer Father Thyroid cancer Other Ovarian cancer Social History Smoking Status: Current every day smoker tobacco type: e-cigarettes alcohol intake: never substance use type: denies use current occupational status: unemployed Travel in the last 8 weeks: None caffeine: No Review of Systems Constitutional Constitutional: Reports system reviewed and no additional complaints, except as documented Meds Home Medications and Allergies Home Medications Medication Instructions Recorded Confirmed Type ferrous sulfate 325 mg (65 mg 325 mg PO DAILY anemia 08/03/22 08/06/22 History iron) tablet nfhvvpy-xgdjwzhutzftc-jhjypxpy 250 1 tab PO Q6H PRN Headache 08/06/22 08/06/22 History mg-250 mg-65 mg tablet (Excedrin Migraine) New Prescriptions to Start Prescriptions: Allergies Allergy/AdvReac Type Severity Reaction Status Date / Time No Known Allergies Allergy Verified 08/06/22 06:20 Exam Data for Last 24 hours Vital signs and Labs for Last 24 H
--- NOTE | 2022-08-06 09:01 | SUR.OPER ---
stop time for laproscopic procedure after made the decision to perform a MINESH-0815. All laproscopic instruments removed before MINESH began and counts were completed. Pt redraped and taken out of stirrups at this time. incision time for MINESH- 0839. 0840- pt family updated of procedure plan via jett flores in preop.
--- NOTE | 2022-08-06 11:34 | P.PNANES_ITS ---
[facility] Anesthesia Record Part I Anesthesia Record I Intake, IV Amount: 1,400 Estimated blood loss (mL): 200 Urine output (mL): 200 Blood Pressure: 132/77 SaO2: 95 Pulse Rate: 77 Respiratory Rate: 16 Temperature: 98.2 F Patient is:: Drowsy Stable to PACU at:: 11:29
--- NOTE | 2022-08-06 13:41 | HMH.PHAINT1 ---
Pharmacy Intervention Comments: MEDICATION RECONCILIATION COMPLETE USING LIST FROM MOST RECENT OB OFFICE VISIT.
--- NOTE | 2022-08-06 16:59 | EXP.OP.NOTE ---
Date of procedure: 08/06/22 Pre-op Diagnosis:: 1. Heavy menstrual bleeding 2. Pelvic pain 3. Enlarged uterus 4. Uterine fibroids 5. Anemia 6. Previous c section Post-op Diagnosis:: Same Procedure performed:: 1. Diagnostic Laparoscopy 2. Total Abdominal Hysterectomy, Bilateral Salpingectomy Surgeon:: Shilpa Dukes MD Senior Treasury Analyst(s):: Rosmery Sales DO MANAGER SALES TRAINING:: Aaron Zaldivar Anesthesia: GETA Estimated blood loss (mL): 200 Operative findings:: Globular, enlarged uterus, 16cm Single pedunculated fibroid from anterior uterine surface Grossly normal ovaries bilaterally Vesicular and powderburn lesions, consistent with endometriosis Moderate vesico-uterine adhesions Operative note:: The patient was taken to the operating room and general anesthesia was administered. She was prepped/draped in lithotomy position. A uterine manipulator was placed without difficulty. Gloves were changed and attention was turned to the abdomen. An 11mm skin incision was made in the umbilical fold and the verees needle was inserted through the peritoneum and into the abdominal cavity in standard fashion. The abdomen was insufflated with CO2 gas. An 11mm non-bladed trocar was inserted directly into the abdominal cavity and appropriate placement was confirmed with the laparoscope. No intra-abdominal injuries occurred during entry into the abdominal cavity, as confirmed visually with the laparoscope. The patient was placed in trendelenburg and the pelvis was surveyed. The uterus was enlarged greater than previously noted on imaging tests. The umbilical trocar's distal end was within a few centimeters of the uterine fundus, limiting visualization. The Avinkula uterine manipulator was also unable to lift the uterus sufficiently because of its large size. At this time, the decision was made to convert to abdominal hyseterectomyl. The abdomen was then evacuated of gas and the umbilical trocar was removed. The skin incision was closed with 4-0 monocryl. The uterine manipulator was removed. The patient was taken out of [facility] and repositioned in supine position. She was redraped. A low skin incision was made approximately 2 cm above the pubic symphysis with a scalpel and extending upwards to 1cm below umbilicus. This incision was carried down to the underlying layer of fascia. The fascia was incised in the midline and extended laterally sharply. The rectus muscles were sharply dissected off the fascia and in the midline. The peritoneum was turned and sharply, with good visualization of the underlying structures. The peritoneal incision was extended bluntly. A survey of the patient's pelvis and abdomen revealed ____ At this time, the patient was placed in Trendelenburg and an O'Robby-O'Roberts retractor was placed in the abdomen; the bowel was packed with moist laparotomy sponges. A double tooth tenaculum was placed on the uterine fundus and the uterus was elevated out of the pelvis. The round ligaments were identified and transected and suture-ligated. The anterior lip of the broad ligament was dissected medially on both sides and the bladder flap was created digitally. The posterior leaf of the broad ligament was dissected until the ureters were able to be identified on either side and noted to be free of the forthcoming adnexal pedicles. Infundibulopelvic ligaments were doubly clamped transected and suture ligated on either side, with excellent hemostasis noted. The fallopian tubes on either side were clamped transected and suture ligated and the specimens were set aside for pathology. Clear vesicular lesions were noted on the right fallopian tube, consistent with endometriosis. The uterine arteries were skeletonized on either side, and were clamped, transected and suture ligated with excellent hemostasis. The bladder flap was further bluntly dissected off the lower uterine segment with excellent hemostasis and without injury to the bladder. The cardina
--- NOTE | 2022-08-06 22:00 | PC.NURSE ---
Abdominal dressing changed at this time. Wilsey intact to post-op incision. Bruising and swelling noted to site.
[2022-08-07] VITALS (8 sets, daily range): BP systolic 95–136; BP diastolic 50–93; PULSE 77–88; RESP 18–20; TEMP 36.7–37.1; O2SAT 98–100
--- NOTE | 2022-08-07 07:00 | PC.NURSE ---
Patient tolerated shift well. Resting in bed at this time. Post-op abdominal dressing CDI. IV patent with no redness or edema noted to site. No s/s of distress noted at this time. Call light within reach of patient, instructed to notify staff of any needs. Reported given to day shift
[2022-08-07 07:14] LABS: Hematocrit 26.5 % (37.0-47.0); Hemoglobin 8.8 g/dL (12.2-16.2)
[2022-08-07 07:15] LABS: Chloride 105 mmol/L (98-107); Sodium 135 mmol/L (136-145)
[2022-08-07 07:16] LABS: Potassium 3.6 mmoL/L (3.5-5.1)
[2022-08-07 07:18] LABS: Blood Urea Nitrogen 4 mg/dl (7-17); Creatinine Clearance Estimated 165 mL/min (50-200); Estimated Glomerular Filt Rate 140 ml/min (>60); GFR (African American) 170 ML/MIN (>60)
[2022-08-07 07:19] LABS: Anion Gap 6.6 mEq/L (5-15); Calcium 7.9 mg/dl (8.4-10.2); Carbon Dioxide 27 mmol/L (22.0-30.0); Glucose 90 mg/dl (74-100)
--- NOTE | 2022-08-07 07:57 | P.PNANES_ITS ---
[facility] Anesthesia Record Part II Anesthesia Record Part II Discharge Time: 12:09 Destination: Obstetric PACU nurse assessment reviewed?: Yes Patient Condition:: Good Anesthesia Complications:: None Swallowing reflex intact?: Yes Cyanosis?: No Blood Pressure: 136/93 Pulse Rate: 85 Temperature: 98.2 F Mental Status: Alert & Oriented Pain level:: 6 Nausea and/or vomitting:: None Intake, IV Amount: 0
--- NOTE | 2022-08-07 09:45 | PC.NURSE ---
IV INFILTRATED- REMOVED AND S BRIE RN INSERTED 20 GAUGE TO RIGHT FA ABOVE PREVIOUS SITE. 3 TOTAL STICKS. PT TOLERATED WELL. ICE APPLIED TO PREVIOUS SITE
--- NOTE | 2022-08-07 10:07 | EXP.ACUTE.PN ---
Subjective *Date: 08/07/22 *Time: 10:07 Interval history: POD # 1 Diagnostic laparoscopy, Total abdominal hysterectomy with bilateral salpingectomy No unusual complaints Tolerating liquid diet She has not voided yet because catheter in place Pain control sufficient but she has been requiring regular scheduled doses of narcotic medication Hgb 8.8 postop as a result of surgical EBL and blood loss within uterus due to large/bulky uterus with fibroids She is asymptomatic with anemia but has had minimal ambulation so far Medical Exam Vital signs and Labs for Last 24 Hours: Vital Signs Temp Pulse Pulse Resp BP BP Pulse Ox 08/07/22 08:15 98 08/07/22 04:29 99 08/06/22 20:00 98 08/06/22 20:09 98.7 F 84 18 126/80 98 08/06/22 19:15 83 20 125/76 96 08/06/22 18:15 92 H 19 132/81 08/06/22 17:15 88 17 119/84 08/06/22 16:15 98 H 20 127/75 100 08/06/22 16:15 98 H 18 127/75 97 08/06/22 12:45 96 08/06/22 15:15 81 18 120/58 L 100 08/06/22 14:45 82 16 103/54 L 99 08/06/22 14:15 97 H 16 110/68 96 08/06/22 15:52 97 H 16 111/58 L 98 08/06/22 13:45 82 17 120/75 99 08/06/22 13:00 98.3 F 75 16 111/58 L 100 08/06/22 12:45 89 16 110/64 99 08/06/22 12:30 83 17 125/75 96 08/06/22 12:15 98.5 F 81 18 123/78 96 08/06/22 12:09 85 13 136/93 H 95 08/06/22 11:59 78 12 129/75 96 08/06/22 11:49 80 12 136/87 96 08/06/22 11:39 98.2 F 76 10 L 132/77 95 08/07/22 07:58 98.2 F 85 136/93 H 08/06/22 11:34 98.2 F 77 16 132/77 Intake and Output 08/06/22 08/07/22 08/07/22 19:59 03:59 11:59 Intake Total 0 / 0 Balance 0 / 0 Intake: Intake, Total IV Amount 0 / 0 Other: Number of Unmeasured Voids 1 Laboratory Results - last 24 hr 08/07/22 07:02: Hgb 8.8 L, Hct 26.5 L 08/07/22 07:02: Sodium 135 L, Potassium 3.6, Chloride 105, Carbon Dioxide 27, Anion Gap 6.6, BUN 4 L, Creatinine 0.50 L, Estimated Creat Clear 165, Estimated GFR 140, Est GFR ( Amer) 170, Glucose 90, Calcium 7.9 L I & O for Labs for Last 24 Hours: Intake & Output 08/04/22 08/05/22 08/06/22 08/07/22 11:59 11:59 11:59 11:59 Intake Total 1400 / 1400 0 / 0 Output Total 1400 / 1400 Balance 0 / 0 0 / 0 ENT: Present mucous membranes moist Neck: Present normal inspection Respiratory: Present CTA bilaterally; Absent respiratory distress Cardiac: Present Reg Rate and Rhythm GI: Present soft and tenderness; Absent distention (female): Present deferred Extremities: Absent tenderness or edema Skin: Present intact and dry Assessment and Plan *Assessment and plan (1) Menorrhagia with regular cycle: Status: Acute Category: Medical Code(s): N92.0 - Excessive and frequent menstruation with regular cycle (2) Pelvic pain in female: Status: Acute Category: Medical Code(s): R10.2 - Pelvic and perineal pain (3) Enlarged uterus: Problem Comment: Patient will follow-up with PROGRAMMER [employer] to assess enlarged uterus observed on CT and during laparoscopic surgery. Status: Acute Category: Medical Code(s): N85.2 - Hypertrophy of uterus (4) Uterine leiomyoma: Status: Acute Category: Medical Code(s): D25.9 - Leiomyoma of uterus, unspecified (5) Iron deficiency anemia: Problem Comment: Ferrous sulfate 325 mg p.o. twice daily prescribed. Patient advised to follow-up with PCP and [employer] for menorrhagia. Status: Acute Category: Medical Code(s): D50.9 - Iron deficiency anemia, unspecified (6) S/P abdominal hysterectomy: Status: Acute Category: Surgical Code(s): Z90.710 - Acquired absence of both cervix and uterus (7) Acute blood loss anemia: Status: Acute Category: Medical Code(s): D62 - Acute posthemorrhagic anemia Plan Advance postop care
--- NOTE | 2022-08-07 11:17 | PC.NURSE ---
PATIENT DONE WELL AMBULATING TO BATHROOM. LINENS CHANGED AT THIS TIME. MESH PANTIES AND PAD PROVIDED.
--- NOTE | 2022-08-07 16:45 | PC.NURSE ---
NO CHANGES IN REASSESSMENT- PATIENT HAS BEEN UP AMBULATING NUMEROUS TIMES TODAY, GOOD OUTPUT NOTED. PT REPORTS PASSING GAS, NO BM YET. SCANT VAGINAL BLEEDING. BOWEL SOUNDS HYPOACTIVE. LUNGS ACTIVE X4. NO EDEMA NOTED. MIDLINE DRESSING REMOVED AND CLEANSED PER ORDER. SWELLING NOTED AT THE TIP OF INCISION, BRUISING NOTED THROUGHOUT. NO DRAINAGE OR WARMTH NOTED. EDUCATION PROVIDED ON WOUND CARE. NO FURTHER NEEDS THIS SHIFT. PAIN MEDICATION EVERY 4 HOURS PER ORDER.
--- NOTE | 2022-08-07 19:00 | PC.NURSE ---
Patient tolerated shift well. Resting in bed. No s/s of distress noted at this time. Post-op incision clean and dry. IV patent with no redness or edema note to site. Call light within reach of patient, instructed to notify staff of any needs. Report given to day shift.
[2022-08-08 04:24] VITALS: O2SAT 99
[2022-08-08 07:19] LABS: Basophils % 0.6 % (0.1-2.0); Eosinophils # 0.4 K/mm3 (0.0-0.4); Eosinophils % 6.9 % (0.1-12.0); Hematocrit 24.9 % (37.0-47.0); Hemoglobin 8.2 g/dL (12.2-16.2); Lymphocytes # 1.6 K/mm3 (0.7-4.5); Lymphocytes % 28.5 % (10-50); Mean Corpuscular Hemoglobin 28.3 pg (27.0-31.2); Mean Corpuscular Volume 85.7 fl (81-99); Mean Platelet Volume 7.6 fl (7.4-10.4); Monocytes # 0.4 K/mm3 (0.1-1.0); Monocytes % 6.7 % (1.7-9.3); Neutrophils # 3.2 K/mm3 (1.8-7.8); Neutrophils % 57.3 % (37.0-80.0); Platelet Count 289 K/mm3 (142-424); Red Cell Distribution Width 17.1 % (11.5-17.5); White Blood Count 5.6 K/mm3 (4.8-10.8)
[2022-08-08 07:40] VITALS: BP 102/78; PULSE 92; RESP 16; TEMP 36.7; O2SAT 99
--- NOTE | 2022-08-08 08:19 | EXP.DC.SUM ---
General Admission date:: 08/06/22 Discharge date: 08/08/22 HPI HPI HPI: POD # 2 s/p diagnostic laparoscopy, MINESH, BS Feeling well. Pain controlled. Denies vaginal bleeding. Voiding without difficulty. Passing flatus. Tolerating regular diet. Denies fever/chills, chest pain and shortness of breath. No headaches, dizziness or swelling. Hospital Course Hospital Course Hospital Course: Ms Abby Martin is a 36 yo who presented to [facility] for scheduled surgery. She complained of acute onset abdomoinal pain and nausea at [facility]. Diagnosed with appendicitis and transferred to [facility], where she had uncomplicated laparoscopic appendectomy. Preop CT had reported possible mass in LUQ and endometrial thickening in uterine fundus. No specific measurement given regarding thickened endometrium, however menstrual period started [address] Intra-operative evaluation of pelvis showed enlarged uterus with small pedunculated fibroid She reported heavy menstrual periods that are regular q 28-30 days. Bleeding lasts 5-9 days and is heavy, with double protection required. She reports dysmenorrhea is severe with occasional dyspareunia. Hgb at [facility] 9.4 and she was started on ferrous sulfate at discharge. Pap smear was performed at initial consultation and result was negative. Pelvic ultrasound was ordered after office visit and performed on 06/13/22: Uterus 11.0x6.7x6.0,? 3.9cm uterine fibroid,? ES 11mm, R ovary 2.5x2.1x2.2cm, L ovary 3.0x1.8x2.6cm She desires definitive surgical management with hysterectomy. She underwent diagnostic laparoscopy, MINESH, BS. POD #2 she was doing well. Pain controlled with medication. Voiding without difficulty and passing flatus. No vaginal bleeding. She is tolerating regular diet. No fever/chills, nausea or vomiting. Heart was regular rate and rhythm. Lungs were clear to auscultation. Abdomen soft, appropriate mild tenderness to palpation. + BS. No swelling. Normal hospital course. She was discharged home. 08/07/22: Hgb 8.8, Hct 26.5 08/08/22: Hgb 8.2, Hct 8.2 Exam Data for Last 24 hours Vital signs and Labs for Last 24 Hours: Temp Pulse Resp BP Pulse Ox 98.0 F 92 H 16 102/78 L 99 08/08/22 07:40 08/08/22 07:40 08/08/22 07:40 08/08/22 07:40 08/08/22 07:40 Laboratory Results - last 24 hr 08/08/22 06:49: WBC 5.6, RBC 2.90 L, Hgb 8.2 L, Hct 24.9 L, MCV 85.7, MCH 28.3, MCHC 33.0, RDW 17.1, Plt Count 289, MPV 7.6, Neut % (Auto) 57.3, Lymph % (Auto) 28.5, Schleicher % (Auto) 6.7, Eos % (Auto) 6.9, Baso % (Auto) 0.6, Neut # (Auto) 3.2, Lymph # (Auto) 1.6, Schleicher # (Auto) 0.4, Eos # (Auto) 0.4, Baso # (Auto) 0.0 I & O for Last 24 hours: Intake & Output 08/05/22 08/06/22 08/07/22 08/08/22 23:59 23:59 23:59 23:59 Intake Total 1400 / 1400 0 / 0 Output Total 1400 / 1400 1600 / 1600 Balance 0 / 0 -1600 / -1600 Constitutional Constitutional: no acute distress *Routine HEENT Exam Head: Present normocephalic Eye: Absent conjunctivae pink ENT: Present mucous membranes moist and dentition normal *Routine Neck Exam Neck: Present full ROM *Routine Respiratory Exam Respiratory: Present CTA bilaterally and normal respiratory effort *Routine Cardiovascular Exam Cardiovascular: Present RRR *Routine Abdominal Exam Abdominal: Present soft, normoactive bowel sounds and tenderness (appropriate mild tenderness postoperatively); Absent distended or guarding *Routine Rectal Exam Patient deferred: visual exam *Routine Exam Patient deferred: external exam *Routine Extremities Exam Extremities: Present full ROM; Absent edema or calf tenderness *Routine Neurological Exam Neurological: Present alert, oriented X3 and moving all extremities Results Data Completed and Pending Labs on day of discharge: Labs from last 24 hours 08/08/22 06:49 WBC 5.6 RBC 2.90 L Hgb 8.2 L Hct 24.9 L MCV 85.7 MCH 28.3 MCHC 33.0 RDW 17.1 Plt Count 289 MPV 7.6 Neut % (Auto) 57.3 Lymph % (Auto) 28.5
== END 2022-08-08 10:02 | disposition home or self-care (01) | DRG 743 ==
LOC: OB 12:34
PROVIDERS: Admitting Provider Obstetrics & Gynecology; Visit Provider Obstetrics & Gynecology
PROC: 0UT90ZZ Resection of Uterus, Open Approach (ICD-10-PCS; CPT 58150; principal; 2022-08-06 07:30)
DX: D25.1 Intramural leiomyoma of uterus (principal); N92.0 Excessive and frequent menstruation with regular cycle; R10.2 Pelvic and perineal pain; N85.2 Hypertrophy of uterus; D50.9 Iron deficiency anemia, unspecified; F17.290 Nicotine dependence, other tobacco product, uncomplicated; Z53.31 Laparoscopic surgical procedure converted to open procedure; N80.201 Endometriosis of right fallopian tube, unspecified depth
CPT/HCPCS: 58150; 36415; 80048; 85014; 85018; 85025; 96374; C9290; C9803; J2405; U0003; U0005

== ENCOUNTER 2022-08-15 10:44 | Emergency (ER) | payer OTHER, SELFPAY ==
[2022-08-15 10:45] VITALS: BP 157/98; PULSE 103; RESP 18; TEMP 36.8; O2SAT 100; BMI 25.7
[2022-08-15 11:00] VITALS: BP 135/86; PULSE 95; O2SAT 100
--- NOTE | 2022-08-15 11:10 | PC.NURSE ---
LENA ERNST at
[2022-08-15 11:26] LABS: Alanine Aminotransferase 23 U/L (12-78); Albumin Level 5.1 g/dl (3.5-5.0); Albumin/Globulin Ratio 1.4 (1.1-1.8); Alkaline Phosphatase 72 U/L (38-126); Anion Gap 16.7 mEq/L (5-15); Aspartate Amino Transferase 27 U/L (14-36); Bilirubin,Total 0.4 mg/dl (0.2-1.3); Blood Urea Nitrogen 8 mg/dl (7-17); Calcium 10.1 mg/dl (8.4-10.2); Carbon Dioxide 24 mmol/L (22.0-30.0); Chloride 103 mmol/L (98-107); Creatinine Clearance Estimated 163 mL/min (50-200); Estimated Glomerular Filt Rate 140 ml/min (>60); GFR (African American) 170 ML/MIN (>60); Globulin 3.6 g/dL (1.3-3.2); Glucose 102 mg/dl (74-100); Potassium 3.7 mmoL/L (3.5-5.1); Sodium 140 mmol/L (136-145); Total Protein,Serum 8.7 g/dl (6.3-8.2)
[2022-08-15 11:27] LABS: Basophils # 0.1 K/mm3 (0-0.2); Basophils % 1.1 % (0.1-2.0); Eosinophils # 0.8 K/mm3 (0.0-0.4); Eosinophils % 8.7 % (0.1-12.0); Hematocrit 35.5 % (37.0-47.0); Hemoglobin 11.5 g/dL (12.2-16.2); Lymphocytes % 32.9 % (10-50); Mean Corpuscular HGB Conc 32.4 g/dL (31.8-35.4); Mean Corpuscular Volume 86.5 fl (81-99); Mean Platelet Volume 7.7 fl (7.4-10.4); Monocytes # 0.4 K/mm3 (0.1-1.0); Neutrophils # 4.9 K/mm3 (1.8-7.8); Neutrophils % 53.3 % (37.0-80.0); Platelet Count 572 K/mm3 (142-424); Red Blood Count 4.11 M/mm3 (4.20-5.40); Red Cell Distribution Width 16.5 % (11.5-17.5); White Blood Count 9.2 K/mm3 (4.8-10.8)
[2022-08-15 11:30] VITALS: BP 126/87; PULSE 83; O2SAT 98
--- NOTE | 2022-08-15 11:35 | HMH.EDGENADL ---
Discharge Plan Disposition Patient Disposition: Home, Self-Care Condition: Good Prescriptions Prescriptions: New cefadroxil 500 mg capsule 500 mg PO BID 7 Days Qty: 14 0RF sulfamethoxazole-trimethoprim [Bactrim DS] 800-160 mg tablet 1 tab PO BID 7 Days Qty: 14 0RF No Action ferrous sulfate 325 mg (65 mg iron) tablet 325 mg PO BID ibuprofen 400 mg Tablet 800 mg PO Q8H PRN (Reason: Mild Pain) Qty: 40 0RF oxycodone 5 mg tablet 5 mg PO Q4H PRN (Reason: pain) Qty: 20 0RF acetaminophen 500 mg capsule 500 mg PO Q6H PRN (Reason: fever) Qty: 30 0RF polyethylene glycol 3350 [Miralax] 17 gram/dose powder 17 g PO BID 3 Days Qty: 102 0RF Referrals Follow up/Referrals: Provider,Referral, MD [Primary Care Provider] - See instructions Activity Restrictions/Add. Instructions Additional Instructions/Restrictions: Follow-up with OB as scheduled. Take your antibiotics as prescribed for entire dose to prevent bacterial resistance. If you have fevers, chills, any other concerning signs or symptoms, return to the ED for further evaluation, or your primary care provider/OB. Clinical Impressions Clinical Impression: Cellulitis Instructions Patient Instructions: DI for Acute Abdominal Pain Discharge ED Provider: Americo Rao General Adult HPI General Chief complaint: Abdominal Pain Stated complaint: Hysterectomy 08/06 knot belly button, phys referra Time Seen by Provider: 08/15/22 11:06 Mode of Arrival: Ambulatory Source of Information: Patient Limitations: No Limitations Description of Symptoms (Recalled from ER Triage Doc. by RN): c/o pain around belly button the the left side of her abdomne. States she noticed it a few days after her hysterectomy and it has gradually gotten worse and is more tender to touch. Does not hurt if she moves just to touch History of Present Illness HPI narrative: This is a 36-year-old female with recent history of hysterectomy performed on 08/06/2022 presenting with abdominal pain. Patient states that she had follow-up appointment 2 days prior to arrival and there was concern for swelling and tenderness of the skin. Patient states that pain is 0 out of 10 when she is not touching it, 8 out of 10 when she pushes on it. Does not radiate, feels like a stabbing or fullness. Denies fevers, chills, nausea, vomiting, overlying skin changes, purulence, dysuria, hematuria, or any other concerning symptoms. No abnormal vaginal discharge or bleeding. Related Data Home Medications Medication Instructions Recorded Confirmed ferrous sulfate 325 mg (65 mg 325 mg PO BID anemia 08/03/22 08/06/22 iron) tablet Previous Rx's Medication Instructions Recorded acetaminophen 500 mg capsule 500 mg PO Q6H PRN fever #30 caps 08/08/22 ibuprofen 400 mg tablet 800 mg PO Q8H PRN Mild Pain #40 08/08/22 tabs oxycodone 5 mg tablet 5 mg PO Q4H PRN pain #20 tabs 08/08/22 polyethylene glycol 3350 17 17 g PO BID 3 days #102 grams 08/08/22 gram/dose oral powder (Miralax) cefadroxil 500 mg capsule 500 mg PO BID 7 days #14 caps 08/15/22 sulfamethoxazole 800 1 tab PO BID 7 days #14 tabs 08/15/22 mg-trimethoprim 160 mg tablet (Bactrim DS) Allergies Allergy/AdvReac Type Severity Reaction Status Date / Time No Known Allergies Allergy Verified 08/06/22 06:20 [facility] Disclaimer: The information contained in this section may have been updated after the patient was seen, as this information can be updated by other users. Medical History (Updated 08/15/22 @ 12:27 by Americo Rao MD) Menorrhagia with regular cycle Uterine leiomyoma Surgical History (Updated 08/12/22 @ 00:11 by Lizeth Rodriguez) History of appendectomy History of tubal ligation Previous section S/P abdominal hysterectomy Family History Family/Other Thyroid cancer Cancer Father Thyroid cancer Other Ovarian cancer
[2022-08-15 12:00] VITALS: BP 114/71; PULSE 72; O2SAT 100
[2022-08-15 12:30] VITALS: BP 124/86; PULSE 75; O2SAT 100
[2022-08-15 12:35] VITALS: BP 124/86; PULSE 75; RESP 17; TEMP 36.7; O2SAT 100
== END 2022-08-15 12:35 | disposition home or self-care (01) ==
PROVIDERS: Emergency Provider Emergency Medicine
DX: R10.9 Unspecified abdominal pain (principal); F17.290 Nicotine dependence, other tobacco product, uncomplicated; Z79.1 Long term (current) use of non-steroidal anti-inflammatories (NSAID); Z98.890 Other specified postprocedural states; Z80.8 Family history of malignant neoplasm of other organs or systems; Z80.9 Family history of malignant neoplasm, unspecified; Z83.438 Family history of other disorder of lipoprotein metabolism and other lipidemia
CPT/HCPCS: 80053; 85025; 99283

== ENCOUNTER → 2022-08-23 09:30 | Outpatient (CLI) | payer OTHER, SELFPAY ==
--- NOTE | 2022-08-23 09:30 | CT_ITS ---
FINAL REPORT TECHNIQUE: Oral contrast enhanced exam. This study was performed with techniques to keep radiation doses as low as reasonably achievable (ALARA). Individualized dose reduction techniques using automated exposure control or adjustment of mA and/or kV according to the patient's size were employed. CLINICAL HISTORY: incision knot post surgery, hysterectomy on 08/06/22, oral contrast drank 7:45am COMPARISON: June 01, 2022 FINDINGS: Abdomen: Lung bases are clear. Liver has an unremarkable CT appearance. The spleen, pancreas and adrenal glands are unremarkable. Kidneys show no mass or obstruction. There are postoperative changes at the level of the umbilicus with a small left periumbilical hernia containing fat. No bowel obstruction or fluid collection is seen. Pelvis: There is linear scarring in the mid line corresponding to surgical incision. There is no associated hernia. The patient is status post hysterectomy and appendectomy. There is trace fluid in the pelvis without obvious abscess. There is a cystic mass in the left adnexa measuring 5 x 3.7 cm. The right ovary is normal. Pelvic bowel loops are unremarkable. No adenopathy is seen. IMPRESSION: 1. Trace nonspecific free fluid. 2. Interval development of left adnexal mass, presumably of ovarian origin. Recommend follow-up pelvic ultrasound. 3. Interval hysterectomy and appendectomy. 4. Tiny left periumbilical hernia containing fat. Reviewed, Interpreted and Dictated by Amisha Park MD Transcribed by Shyla Cabrales Authenticated and [facility]
== END ==
PROVIDERS: PCP Obstetrics & Gynecology; Visit Provider Obstetrics & Gynecology
DX: T81.49XA Infection following a procedure, other surgical site, initial encounter (principal); Z90.710 Acquired absence of both cervix and uterus
CPT/HCPCS: 74176

== ENCOUNTER 2022-12-15 08:32 | Emergency (ER) | payer OTHER, SELFPAY ==
[2022-12-15 08:44] VITALS: BP 142/95; PULSE 75; RESP 16; TEMP 36.6; O2SAT 100; BMI 25.3
[2022-12-15 08:52] LABS: UTC Strep Screen (Rapid) Negative (Negative)
--- NOTE | 2022-12-15 08:55 | EXP.UTC ---
Discharge Plan Disposition Patient Disposition: Home, Self-Care Condition: Good Prescriptions Prescriptions: New fluticasone propionate [fluticasone propionate] 50 mcg/actuation spray,suspension 1 spray intranasal DAILY Qty: 9.9 0RF prednisone [prednisone] 20 mg tablet 20 mg PO BID Qty: 10 0RF Referrals Follow up/Referrals: Provider,Referral, [Primary Care Provider] - See instructions Activity Restrictions/Add. Instructions Additional Instructions/Restrictions: No sign of a bacterial infection. Likely viral. Viruses can take 7-14 days to run their course. Nasal saline and bulb syringe or nose Aylin to remove nasal drainage to help with nasal congestion. Hard to eat, drink, sleep with nasal congestion so important to keep this cleaned out. Monitor temp. Tylenol or Motrin as needed for pain or fever Encourage fluids, water, Gatorade, Powerade, Pedialyte if infant/toddler/child Warm salt water gargles Warm fluids Sore throat lozenges Sleep elevated Humidifier/vaporizer Follow-up immediately for new or worsening symptoms or no noticeable improvement over the next 48-72 hours. Clinical Impressions Clinical Impression: Upper respiratory infection Instructions Patient Instructions: DI for Viral Upper Respiratory Infection -- Adult Discharge ED Provider: Johanny ([facility] [place] HPI General Stated complaint: congestion, sore throat, h/a Mode of Arrival: Ambulatory Source of Information: Patient Limitations: No Limitations Time Seen by Provider: 12/15/22 08:55 Description of Symptoms (Recalled from Triage Doc. by RN): pt c/o sinus congestion and a nonproductive cough x1wk. HEENT Symptoms (Recalled from RN notes): Yes Resp Symptoms (Recalled from RN notes): Yes Skin Symptoms (Recalled from RN notes): No MS Symptoms (Recalled from RN notes): No Functional Status (Recalled from RN notes): wnl History of Present Illness Provider Complaint: 37 yr old female presents for sinus congestion, clear sinus drainage, sinus pressure and sore throat. pt states this has been going on for 1 week with no improvement with otc meds Related Data Previous Rx's Medication Instructions Recorded fluticasone propionate 50 1 spray intranasal DAILY #9.9 mL 12/15/22 mcg/actuation nasal spray,suspension prednisone 20 mg tablet 20 mg PO BID #10 tabs 12/15/22 Allergies Allergy/AdvReac Type Severity Reaction Status Date / Time No Known Allergies Allergy Verified 12/15/22 08:47 Worker's Comp Is this a Worker's Comp case?: No [facility] Disclaimer: The information contained in this section may have been updated after the patient was seen, as this information can be updated by other users. Medical History (Reviewed 12/15/22 @ 09:01 by Migue Orlando ([facility]), ANODE MACHINE OPERATOR) Menorrhagia with regular cycle Uterine leiomyoma Surgical History (Reviewed 12/15/22 @ 09:01 by Migue Orlando ([facility]), ANODE MACHINE OPERATOR) History of appendectomy History of tubal ligation Previous section S/P abdominal hysterectomy Family History (Reviewed 12/15/22 @ 09:01 by Migue Orlando ([facility]), ANODE MACHINE OPERATOR) Ovarian cancer Thyroid cancer Family/Other Father Cancer Family/Other Social History (Reviewed 12/15/22 @ 09:01 by Migue Orlando ([facility]), ANODE MACHINE OPERATOR) Smoking Status: Current every day smoker tobacco type: e-cigarettes alcohol intake: never substance use type: denies use current occupational status: unemployed Travel in the last 8 weeks: None caffeine: No ROS Obtained: Yes All systems reviewed & no additional complaints except as documented Constitutional Constitutional: Reports system reviewed and no additional complaints, except as documented Eyes Eyes: Reports system reviewed and no additional complaints, except as documented and Reports as per HPI ENT Ears, Nose, Mouth, and Throat: Reports system reviewed and no additional complaints, except as documented, Reports as per HPI, Reports nasal congestion, Reports nasal discharge,
[2022-12-15 09:11] VITALS: BP 142/95; PULSE 75; RESP 16; TEMP 36.6
== END 2022-12-15 09:12 | disposition home or self-care (01) ==
PROVIDERS: Emergency Provider Nurse Practitioner Family
DX: J06.9 Acute upper respiratory infection, unspecified (principal); B34.9 Viral infection, unspecified; F17.290 Nicotine dependence, other tobacco product, uncomplicated
CPT/HCPCS: 87880; 99212; 99214; G0463

== ENCOUNTER → 2023-02-11 10:42 | Outpatient (CLI) | payer OTHER, SELFPAY ==
[2023-02-11 12:15] LABS: Basophils % 0.6 % (0.1-2.0); Eosinophils # 0.2 K/mm3 (0.0-0.4); Eosinophils % 2.6 % (0.1-12.0); Hematocrit 42.7 % (37.0-47.0); Hemoglobin 13.6 g/dL (12.2-16.2); Lymphocytes # 2.1 K/mm3 (0.7-4.5); Lymphocytes % 37.5 % (10-50); Mean Corpuscular HGB Conc 31.9 g/dL (31.8-35.4); Mean Corpuscular Hemoglobin 28.5 pg (27.0-31.2); Mean Corpuscular Volume 89.5 fl (81-99); Mean Platelet Volume 9.3 fl (7.4-10.4); Monocytes # 0.3 K/mm3 (0.1-1.0); Monocytes % 4.4 % (1.7-9.3); Neutrophils # 3.2 K/mm3 (1.8-7.8); Platelet Count 319 K/mm3 (142-424); Red Blood Count 4.77 M/mm3 (4.20-5.40); Red Cell Distribution Width 15.4 % (11.5-17.5); White Blood Count 5.7 K/mm3 (4.8-10.8)
[2023-02-11 12:32] LABS: Chloride 105 mmol/L (98-107)
[2023-02-11 12:33] LABS: Sodium 140 mmol/L (136-145)
[2023-02-11 12:35] LABS: Alanine Aminotransferase 22 U/L (12-78); Alkaline Phosphatase 74 U/L (38-126); Aspartate Amino Transferase 26 U/L (14-36); Bilirubin,Total 0.6 mg/dl (0.2-1.3); Blood Urea Nitrogen 8 mg/dl (7-17); Carbon Dioxide 22 mmol/L (22.0-30.0); Estimated Glomerular Filt Rate 140 ml/min (>60); GFR (African American) 169 ML/MIN (>60)
[2023-02-11 12:36] LABS: Albumin Level 4.9 g/dl (3.5-5.0); Albumin/Globulin Ratio 1.6 (1.1-1.8); Calcium 9.2 mg/dl (8.4-10.2); Glucose 76 mg/dl (74-100); Total Protein,Serum 7.9 g/dl (6.3-8.2)
[2023-02-11 13:07] LABS: Thyroid Stimulating Hormone 0.48 uIU/mL (0.465-4.68)
[2023-02-12 10:15] LABS: Estradiol 77.7 pg/mL (.); FSH 6.2 mIU/mL (.); LH 5.5 mIU/mL (.); Progesterone 0.3 ng/mL (.)
== END ==
PROVIDERS: Visit Provider Obstetrics & Gynecology
DX: N95.1 Menopausal and female climacteric states (principal); R53.83 Other fatigue
CPT/HCPCS: 36415; 80053; 82670; 83001; 83002; 84144; 84443; 85025

== ENCOUNTER → 2023-06-26 23:19 | Outpatient (CLI) | payer OTHER, SELFPAY | PROVIDERS: PCP Physician Assistant; Visit Provider Nurse Practitioner Family | DX: J02.9 Acute pharyngitis, unspecified (principal) | CPT/HCPCS: 87070 ==

== ENCOUNTER 2023-11-08 14:30 | Emergency (ER) | payer OTHER, SELFPAY ==
[2023-11-08 14:35] VITALS: BP 145/95; PULSE 90; RESP 18; TEMP 36.6; O2SAT 100; BMI 25.8
--- NOTE | 2023-11-08 14:59 | ED_ITS ---
Discharge Plan Disposition Patient Disposition: Home, Self-Care Condition: Good Prescriptions Prescriptions: New promethazine-DM 6.25-15 mg/5 mL Syrup 5 ml PO Q6H PRN (Reason: Cough) Qty: 240 0RF azithromycin [Zithromax] 250 mg tablet 250 mg PO UD DOSE PK Qty: 6 0RF Rx Instructions: Take two (2) tablets today, then one (1) tablet days #2 thru #5 methylprednisolone 4 mg Tablets,Dose Pack 4 mg PO DIRECTED 6 Days Qty: 21 0RF Rx Instructions: Take 1 pack as directed for 6 days No Action estradiol 1 mg tablet 1 mg PO DAILY Qty: 30 5RF Referrals Follow up/Referrals: Shy Leon PA [Primary Care Provider] - See instructions Activity Restrictions/Add. Instructions Additional Instructions/Restrictions: Drink plenty of fluids. Take tylenol or ibuprofen for pain or fever. Take the medications as directed. Follow up with your regular doctor. GO TO THE ER FOR ANY WORSENING SYMPTOMS Clinical Impressions Clinical Impression: Acute bronchitis, Sinusitis, Acute viral syndrome Stand Alone Forms Stand Alone Forms: Work/School Release Instructions Patient Instructions: Sinusitis, DI for Sinusitis Discharge ED Provider: Fernando Dee [facility] General Stated complaint: sinus congestion, cough, sore throat Mode of Arrival: Ambulatory Source of Information: Patient Limitations: No Limitations Time Seen by Provider: 11/08/23 14:59 Description of Symptoms (Recalled from Triage Doc. by RN): Pt's symptoms congestion, cough, and sore throat. HEENT Symptoms (Recalled from RN notes): Yes Resp Symptoms (Recalled from RN notes): No Skin Symptoms (Recalled from RN notes): No MS Symptoms (Recalled from RN notes): No Functional Status (Recalled from RN notes): n/a History of Present Illness Provider Complaint: She states that for the past 2 days she has had sore throat, sinus congestion, chest congestion, and a cough. Related Data Previous Rx's Medication Instructions Recorded estradiol 1 mg tablet 1 mg PO DAILY #30 tabs 09/09/23 azithromycin 250 mg tablet 250 mg PO UD DOSE PK #6 tabs 11/08/23 (Zithromax) methylprednisolone 4 mg tablets in 4 mg PO DIRECTED 6 days #21 tabs 11/08/23 a dose pack promethazine-DM 6.25 mg-15 mg/5 mL 5 ml PO Q6H PRN Cough #240 mL 11/08/23 oral syrup Allergies Allergy/AdvReac Type Severity Reaction Status Date / Time No Known Allergies Allergy Verified 11/08/23 14:51 Worker's Comp Is this a Worker's Comp case?: No [facility] Disclaimer: The information contained in this section may have been updated after the patient was seen, as this information can be updated by other users. Medical History (Updated 11/08/23 @ 15:27 by Fernando Dee APRN) Fatigue Abdominal pain Incisional pain Cellulitis Acute blood loss anemia Uterine leiomyoma Menorrhagia with regular cycle Surgical History S/P abdominal hysterectomy History of appendectomy History of tubal ligation Previous section Family History Family/Other Thyroid cancer Cancer Uterine cancer Father Thyroid cancer Other Ovarian cancer Social History Smoking Status: Current every day smoker tobacco type: e-cigarettes alcohol intake: never substance use type: denies use current occupational status: unemployed Travel in the last 8 weeks: None caffeine: No ROS Obtained: Yes All systems reviewed & no additional complaints except as documented Constitutional Constitutional: Reports chills and Reports fever(s) Eyes Eyes: Denies eye discharge ENT Ears, Nose, Mouth, and Throat: Reports as per HPI Cardiovascular Cardiovascular: Denies chest pain Respiratory Respiratory: Denies chest congestion and Reports cough Gastrointestinal Gastrointestingal: Reports nausea; Denies abdominal pain, constipation, cramping, diarrhea or vomiting Musculoskeletal Musculoskeletal: Denies arthralgias Integumentary/Breasts Skin/Breast: Denies rash Neurologic Neurologic: Denies paresthesias Physical Exam General General appearance: alert and in no apparent distress Eye Eye exam: Present normal appearance, PERRL and EOMI ENT ENT exam: Present mucous membranes moist and normal external ear exam Expanded ENT Exam External ear exam: Present normal external inspection TM/Canal exam: Bilateral TM: erythema and bulging Nose exam: Absent sinus tenderness Nasal speculum exam: Bilateral: normal Mouth exam: Present normal external inspection; Absent drooling Teeth exam: Present normal inspection Throat exam: Present tonsillar erythema and tonsillomegaly Neck Neck exam: Present normal inspection, full ROM and trachea midline; Absent tenderness, lymphadenopathy or thyromegaly Chest Chest inspection: Present normal inspection and symmetric chest wall rise; Absent tenderness or rash Respiratory Respiratory exam: Present normal lung sounds bilaterally; Absent respiratory distress, wheezes, stridor or accessory muscle use Cardiovascular Cardiovascular exam: Present regular rate, normal rhythm and normal heart sounds Abdominal Exam Abdominal exam: Present soft; Absent distention, tenderness, guarding, rebound or rigidity Extremities Exam Extremities exam: Present normal inspection, full ROM and normal capillary refill; Absent tenderness or calf tenderness Back Exam Back exam: Present normal inspection and full ROM; Absent tenderness Neurological Exam Neurological exam: Present alert and oriented X3 Psychiatric Psychiatric exam: Present normal affect and normal mood Skin Skin exam: Present warm, dry, intact and normal color Lymphatic Lymphatic Findings: no adenopathy Medical Decision Making Medical Records Medical records reviewed: No I reviewed the patient's medical records. Dayo Inquiry Pt receiving controlled substance: No Vital Signs: 11/08/23 14:35 Temperature 97.8 F Temperature Source Oral Pulse Rate [Right Radial] 90 Respiratory Rate 18 Blood Pressure [Right Arm] 145/95 H Blood Pressure Mean [Right Arm] 111 Blood Pressure Source [Right Arm] Automatic Cuff Blood Pressure Position [Right Arm] Sitting 02 Sat by Pulse Oximetry 100 Oxygen Delivery Method Room Air Lab Data Lab results reviewed: Yes I reviewed the patient's lab results.
[2023-11-08 15:01] LABS: UTC Strep Screen (Rapid) Negative (Negative)
[2023-11-08 15:40] VITALS: BP 145/95; PULSE 90; RESP 18; TEMP 36.6; O2SAT 100
== END 2023-11-08 15:39 | disposition home or self-care (01) ==
PROVIDERS: Emergency Provider Nurse Practitioner Family; PCP Physician Assistant
DX: J20.9 Acute bronchitis, unspecified (principal); J01.90 Acute sinusitis, unspecified; R07.0 Pain in throat; B34.9 Viral infection, unspecified; R05.9 Cough, unspecified; R09.81 Nasal congestion; F17.290 Nicotine dependence, other tobacco product, uncomplicated; Z56.0 Unemployment, unspecified
CPT/HCPCS: 87880; 99212; 99214; G0463

== ENCOUNTER 2024-09-27 09:23 | Emergency (ER) | payer MEDICAID, SELFPAY ==
[2024-09-27 10:14] VITALS: BP 137/87; PULSE 83; RESP 18; TEMP 36.8; O2SAT 99; BMI 25.4
--- NOTE | 2024-09-27 10:17 | EXP.UTC ---
Discharge Plan Disposition Patient Disposition: Home, Self-Care Condition: Good Prescriptions Prescriptions: New prednisone 10 mg tablet 10 mg PO BID 3 Days Qty: 6 0RF amoxicillin 875 mg tablet 875 mg PO Q12H Qty: 20 0RF [id number] [Bromfed DM] 2-30-10 mg/5 mL Syrup 5 ml PO Q6H PRN (Reason: Cough) Qty: 240 0RF Referrals Follow up/Referrals: Ben Jacobson DO [Primary Care Provider] - See instructions Activity Restrictions/Add. Instructions Additional Instructions/Restrictions: Drink plenty of fluids. Take tylenol or ibuprofen for pain or fever. Take the medications as directed. Follow up with your regular doctor. GO TO THE ER FOR ANY WORSENING SYMPTOMS Clinical Impressions Clinical Impression: Pharyngitis, Acute viral syndrome Stand Alone Forms Stand Alone Forms: Work/School Release Instructions Patient Instructions: Sore Throat, DI for Pharyngitis/Tonsillopharyngitis -- Adult Print Language Print Language: Croatian Discharge ED Provider: Fernando Dee [facility] General Stated complaint: sore throat, cough Mode of Arrival: Ambulatory Source of Information: Patient Time Seen by Provider: 09/27/24 10:17 Description of Symptoms (Recalled from Triage Doc. by RN): SORE THROAT, COUGH, CHILLS, FEELS LIKE THIS WHEN SHE HAS STREP HEENT Symptoms (Recalled from RN notes): Yes Resp Symptoms (Recalled from RN notes): Yes Skin Symptoms (Recalled from RN notes): No MS Symptoms (Recalled from RN notes): No Functional Status (Recalled from RN notes): WNL History of Present Illness Provider Complaint: She states that since yesterday she has had sore throat, malaise, and chilling. She denies documented fever. She states that she gets strep throat kind of frequently and that is what she thinks is happening now. Related Data Previous Rx's ?Medication ?Instructions ?Recorded amoxicillin 875 mg tablet 875 mg PO Q12H #20 tabs 09/27/24 [id number] 5 ml PO Q6H PRN Cough #240 mL 09/27/24 2 mg-30 mg-10 mg/5 mL oral syrup (Bromfed DM) prednisone 10 mg tablet 10 mg PO BID 3 days #6 tabs 09/27/24 Allergies Allergy/AdvReac Type Severity Reaction Status Date / Time No Known Allergies Allergy Verified 02/26/24 10:22 Worker's Comp Is this a Worker's Comp case?: No [facility] Disclaimer: The information contained in this section may have been updated after the patient was seen, as this information can be updated by other users. Medical History Fatigue Abdominal pain Incisional pain Cellulitis Acute blood loss anemia Uterine leiomyoma Menorrhagia with regular cycle Surgical History S/P abdominal hysterectomy History of appendectomy History of tubal ligation Previous section x2 Family History Family/Other Thyroid cancer Cancer Uterine cancer Father Thyroid cancer Other Ovarian cancer Social History Smoking Status: Current every day smoker tobacco type: e-cigarettes alcohol intake: never substance use type: denies use current occupational status: unemployed Travel in the last 8 weeks: None caffeine: No Have you lived/traveled outside [place] in past 30 days?: No Contact w/someone who lives/traveled outside [place] past 30 days?: No Exposure to someone with infectious disease in past 14 days?: No Do you have a fever (greater than 100.4 F or 38 C)?: No Have you tested positive for COVID-19: No Exposed to someone with COVID-19 in past 14 days?: No Do you have a sore throat?: Yes Do you have a cough?: Yes Do you have any weakness?: No Do you have any diarrhea?: No Are you experiencing any unusual bleeding?: No Do you have any muscle aches/pain?: No Do you have any abdominal pain?: No Are you experiencing loss of taste or smell?: No ROS Obtained: Yes All systems reviewed & no additional complaints except as documented Constitutional Constitutional: Reports chills and Reports fever(s) Eyes Eyes: Denies eye discharge ENT Ears, Nose, Mouth, and Throat: Reports as per HPI Cardiovascular Cardiovascular: Denies chest pain Respiratory Respiratory: Denies chest congestion and Reports cough Gastrointestinal Gastrointestingal: Reports nausea; Denies abdominal pain, constipation, cramping, diarrhea or vomiting Musculoskeletal Musculoskeletal: Denies arthralgias Integumentary/Breasts Skin/Breast: Denies rash Neurologic Neurologic: Denies paresthesias Physical Exam General General appearance: alert and in no apparent distress Head Head exam: atraumatic, normocephalic and normal inspection Eye Eye exam: Present normal appearance, PERRL and EOMI ENT ENT exam: Present mucous membranes moist and normal external ear exam Expanded ENT Exam TM/Canal exam: Bilateral TM: erythema and bulging Nose exam: Absent sinus tenderness Mouth exam: Present normal external inspection; Absent drooling Teeth exam: Present normal inspection Throat exam: Present tonsillar erythema, tonsillomegaly and tonsillar exudate Neck Neck exam: Present normal inspection, full ROM and trachea midline; Absent tenderness, meningismus or lymphadenopathy Chest Chest inspection: Present normal inspection and symmetric chest wall rise; Absent tenderness Respiratory Respiratory exam: Present normal lung sounds bilaterally; Absent respiratory distress, wheezes, stridor or accessory muscle use Cardiovascular Cardiovascular exam: Present regular rate and normal rhythm; Absent systolic murmur or diastolic murmur Abdominal Exam Abdominal exam: Present soft and normal bowel sounds; Absent distention, tenderness, guarding, rebound or rigidity Extremities Exam Extremities exam: Present normal inspection and normal capillary refill; Absent calf tenderness Back Exam Back exam: Present normal inspection and full ROM; Absent tenderness, CVA tenderness (R) or CVA tenderness (L) Neurological Exam Neurological exam: Present alert, oriented X3 and CN II-XII intact Psychiatric Psychiatric exam: Present normal affect and normal mood Skin Skin exam: Present warm, dry, intact and normal color Medical Decision Making Medical Records Medical records reviewed: No I reviewed the patient's medical records. Screening: Per USPSTF and CDC recommendations, given the prevalence of disease in our region, it is our hospital?s policy to screen for HIV and viral Hepatitis for all patients aged 18 and over and those with ongoing risk factors. Dayo Inquiry Pt receiving controlled substance: No Vital Signs: 09/27/24 10:14 Temperature 98.3 F Temperature Source Oral Pulse Rate [Left Radial] 83 Respiratory Rate 18 Blood Pressure [Left Arm] 137/87 Blood Pressure Mean [Left Arm] 103 02 Sat by Pulse Oximetry 99 Lab Data Lab results reviewed: Yes I reviewed the patient's lab results.
[2024-09-27 10:32] LABS: UTC Strep Screen (Rapid) Negative (Negative)
[2024-09-27 10:42] LABS: UTC Influenza A Antigen Negative (Negative); UTC Influenza B Antigen Negative (Negative)
[2024-09-27 10:56] VITALS: BP 137/87; PULSE 83; RESP 18; TEMP 36.8
== END 2024-09-27 10:57 | disposition home or self-care (01) ==
PROVIDERS: Emergency Provider Nurse Practitioner Family; PCP Internal Medicine
DX: J02.9 Acute pharyngitis, unspecified (principal); B34.9 Viral infection, unspecified
CPT/HCPCS: 87804; 87880; 99212; G0381